=== PATIENT | female | born 1945 | race Caucasian/White ===

== ENCOUNTER 2025-06-19 18:58 | Inpatient (IN) | payer MEDICARE, SELFPAY ==
[2025-06-19] VITALS (17 sets, daily range): BP systolic 119–159; BP diastolic 38–73; PULSE 110–121; RESP 23–30; TEMP 36.7–37.7; O2SAT 74–95; BMI 33.1
--- NOTE | 2025-06-19 19:09 | XRR_ITS ---
PROCEDURE INFORMATION: Exam: XR Chest Exam date and time: 06/19/2025 7:19 PM Age: 79 years old Clinical indication: Shortness of breath; Additional info: Possible sepsis TECHNIQUE: Imaging protocol: Radiologic exam of the chest. Views: 1 view. COMPARISON: No relevant prior studies available. FINDINGS: Lungs: Peripheral reticular opacities are seen in each lung, most prominent at the right apex. Patient is rotated to the left. Pleural spaces: No pleural effusion. No pneumothorax. Heart/Mediastinum: Heart is moderately enlarged. Vasculature: Calcified aorta without dilation. Bones/joints: Subjective bony demineralization. Advanced right shoulder arthropathy. XR/XR chest 1V portable [id number] IMPRESSION: 1. Moderate cardiac enlargement. No definite features of heart failure otherwise. 2. Subpleural reticular opacities at each lung apex may reflect chronic scarring. 3. Subjective bony demineralization could be quantified with DEXA.
--- NOTE | 2025-06-19 19:11 | CTR_ITS ---
PROCEDURE INFORMATION: Exam: CT Chest With Contrast; Diagnostic Exam date and time: 06/19/2025 8:35 PM Age: 79 years old Clinical indication: Other: Sepsis; Shortness of breath TECHNIQUE: Imaging protocol: Diagnostic computed tomography of the chest with contrast. Radiation optimization: All CT scans at this facility use at least one of these dose optimization techniques: automated exposure control; mA and/or kV adjustment per patient size (includes targeted exams where dose is matched to clinical indication); or iterative reconstruction. Contrast material: OMNI 350; Contrast volume: 100 ml; Contrast route: INTRAVENOUS (IV); COMPARISON: CR (CHEST, ) 06/19/2025 7:19 PM RADIATION DOSE METRICS: Total DLP (mGy-cm): 2203.76 FINDINGS: Lungs: There is mild volume loss in the left lower lobe. No acute airspace disease. Pleural spaces: No pneumothorax. No pleural effusion. Heart: Heart size is normal. Coronary arteries: Mild coronary artery calcification. Lymph nodes: Calcified hilar and mediastinal lymph nodes. Vasculature: There is advanced calcific plaque throughout the ectatic thoracic aorta. Ascending segment is normal in caliber, but the descending segment measures up to 3.8 cm transverse dimension in the descending segment. Typical aortic branching pattern with patent branch vessels. Normal caliber pulmonary artery tree without visible filling defect. Scattered calcified granulomata are noted. Bones/joints: No acute fracture or destructive lesion. Soft tissues: Asymmetric tissue noted in the lateral aspect of the left breast. PROCEDURE INFORMATION: Exam: CT Abdomen And Pelvis With Contrast Exam date and time: 06/19/2025 8:35 PM Age: 79 years old Clinical indication: Other: Sepsis; Shortness of breath TECHNIQUE: Imaging protocol: Computed tomography of the abdomen and pelvis with contrast. Radiation optimization: All CT scans at this facility use at least one of these dose optimization techniques: automated exposure control; mA and/or kV adjustment per patient size (includes targeted exams where dose is matched to clinical indication); or iterative reconstruction. Contrast material: OMNI 350; Contrast volume: 100 ml; Contrast route: INTRAVENOUS (IV); COMPARISON: CR (CHEST, ) 06/19/2025 7:19 PM RADIATION DOSE METRICS: Total DLP (mGy-cm): 2203.76 FINDINGS: Liver: Mild fatty infiltration of the liver. Liver measures 21.8 cm in length. Gallbladder and biliary ducts: The postprandial gallbladder is tightly contracted around small stones. No biliary tree dilation. Pancreas: No pancreatic edema or visible mass. Spleen: Spleen measures 10.5 cm in length. Adrenal glands: Normal configuration. Kidneys and ureters: Kidneys enhance symmetrically and demonstrate no evidence of mass, calculus, obstruction, or inflammation. Stomach and bowel: Postprandial stomach. Normal caliber small bowel. Distal colonic diverticulosis without evidence of acute diverticulitis. No bowel wall pneumatosis. Appendix: Normal appendix is confirmed in a retrocecal position. Intraperitoneal space: No free air. No significant fluid collection. Vasculature: There is potential for stenosis at the origins of the celiac and SMA. CESARIO appears patent. There is high-grade stenosis of the proximal right common iliac artery. Patent portal vein and tributaries. No portal venous gas. Lymph nodes: Largest single node in the left inguinal region measures 1.7 cm short axis diameter. Non pathologically enlarged left external iliac distribution lymph nodes are noted. No adenopathy in more proximal gus stations. Urinary bladder: Unremarkable as visualized. Reproductive: Atrophic uterus as expected. No adnexal masses. Bones/joints: There is fatty atrophy of skeletal muscle, most significantly affecting the paraspinous muscles. Mild spinal degenerative change with patent spinal canal and neural foramina. Minimal sacroiliac osteoarthritis. Moderate to advanced bilateral hip osteoarthritis. Soft tissues: There is considerable inflammation in the left inguinal region with several enlarged and enhancing lymph nodes. No perineal/perianal abscess or inflammation. No soft tissue gas or radiopaque foreign body. No visible skin breakdown. CT/CT chest abdpel w/*[id number] IMPRESSION: 1. No acute abnormality in the chest to explain patient's sepsis. 2. Advanced arterial disease. 3. Despite appearance on plain film, the heart size is normal. There is chronic appearing volume loss in the left lower lobe resulting in displacement of the heart to the left. 4. There is asymmetric tissue in the lateral aspect of the left breast. This may be a physiologic asymmetry, but correlation with mammography is recommended. IMPRESSION: 1. There is inflammatory change in the left inguinal region and proximal thigh with enlarged enhancing lymph nodes suggesting cellulitis or other inflammatory/infectious process in the left lower extremity. 2. No acute intra-abdominal abnormality. No evidence of bowel obstruction or urolithiasis. 3. Advanced arterial disease noted with potential for hemodynamically significant stenoses of the celiac and SMA as well as the right common iliac artery. No current findings of bowel ischemia or infarction. 4. Advanced diverticulosis without evidence of acute diverticulitis. 5. Cholelithiasis without evidence of acute cholecystitis.
--- NOTE | 2025-06-19 19:11 | XRR_ITS ---
PROCEDURE INFORMATION: Exam: XR Left Tibia and Fibula Exam date and time: 06/19/2025 7:14 PM Age: 79 years old Clinical indication: Edema; No, it is generalized; Additional info: Concern for subq gas TECHNIQUE: Imaging protocol: Radiologic exam of the left tibia and fibula. Views: 2 views. COMPARISON: No relevant prior studies available. FINDINGS: Bones/joints: No evidence of acute fracture or dislocation. No erosive disease. No significant degenerative change. Soft tissues: Severe diffuse subcutaneous edema with extensive cutaneous thickening. No soft tissue gas or radiopaque foreign body. XR/XR tibia fibula LT 2V [id number] IMPRESSION: Severe subcutaneous edema and cutaneous thickening. No soft tissue gas or radiopaque foreign body. Bony structures appear normal.
--- NOTE | 2025-06-19 19:11 | CTR_ITS ---
PROCEDURE INFORMATION: Exam: CT Head Without Contrast Exam date and time: 06/19/2025 8:29 PM Age: 79 years old Clinical indication: Altered mental status/memory loss; Additional info: AMS TECHNIQUE: Imaging protocol: Computed tomography of the head without contrast. Radiation optimization: All CT scans at this facility use at least one of these dose optimization techniques: automated exposure control; mA and/or kV adjustment per patient size (includes targeted exams where dose is matched to clinical indication); or iterative reconstruction. COMPARISON: No relevant prior studies available. RADIATION DOSE METRICS: Total DLP (mGy-cm): 1674.1 FINDINGS: Brain: Age-related brain parenchymal atrophy. Areas of hypoattenuation in the periventricular and subcortical deep white matter likely on the basis of chronic microvascular ischemic changes. No acute intra cranial hemorrhage. No mass effect or midline shift. No definitive CT evidence of acute territorial infarction. Cerebral ventricles: Prominence of the lateral ventricular system likely on the basis of parenchymal volume loss. Paranasal sinuses: Visualized sinuses are unremarkable. No fluid levels. Mastoid air cells: Visualized mastoid air cells are well aerated. Bones: Intact calvarium. Soft tissues: Unremarkable. CT/CT head wo con* [id number] IMPRESSION: No acute intracranial abnormality. Senescent changes.
--- NOTE | 2025-06-19 19:15 | ECG_ITS ---
[employer] Test Date: 2025-06-19 Pat Name: Brielle Gaytan Department: Room: Gender: Female Barrel Cutter: : 1945 Requested By: Clint Blue Order Number: [id number] Moi MD: Deonna Dumas M.D. Measurements Intervals Vernalis Rate: 118 P: 75 WV: 181 QRS: -71 QRSD: 91 T: 68 QT: 314 QTc: 440 Interpretive Statements SINUS TACHYCARDIA LEFT ANTERIOR FASCICULAR BLOCK [QRS AXIS <= -45, QR IN I, RS IN II] WARNING: DATA QUALITY MAY AFFECT INTERPRETATION No previous ECG available for comparison Electronically Signed On 06-19-2025 23:05:46 CDT by Deonna Dumas M.D. [email or web address]
--- OUTSIDE RECORDS SUMMARY | 2025-06-19 19:20 | XMS_ITS | Encounter Summary ---
Author Organization [facility] Address [address] [place] [address] Care Team Providers Care Packing Machine Operator Name Role Phone Austyn Obregon MD Primary Care Provider [phone] [phone] Encounter Details Date Type Department Care Team (Latest Contact Info) Description 06/14/[address] [facility] Family Medicine- [place] [facility] [address] [place] [phone] Dimitri Romero DO NO ADDRESS ON FILE Urinary tract infection, site not specified (Primary Dx); Pain in joint, site unspecified Social History Tobacco Use Types Packs/Day Years Used Date Smoking Tobacco: Never Assessed Comments Unknown Sex and Gender Information Value Date Recorded Sex Assigned at Not on file Legal Sex Female 5:49 AM LPN PER DIEM Gender Identity Not on file Sexual Orientation Not on file documented as of this encounter Plan of Treatment Not on file documented as of this encounter Visit Diagnoses Diagnosis Urinary tract infection, site not specified- Primary Pain in joint, site unspecified documented in this encounter Care Teams Packing Machine Operator Relationship Specialty Start Date End Date Austyn Obregon MD [address] [facility] [address] [place] [address] PCP - General Family Practice 03/23/19 documented as of this encounter
--- OUTSIDE RECORDS SUMMARY | 2025-06-19 19:20 | XMS_ITS | Encounter Summary ---
Author Organization [facility] Address [address] [place] [address] Care Team Providers Care Per Diem Nurse Name Role Phone Austyn Obregon MD Primary Care Provider [phone] [phone] Encounter Details Date Type Department Care Team (Late st Contact Info) Description 05/16/1999 Outpatient Historical [facility] Family Medicine- [place] y [address] [place] [address] Social History Tobacco Use Types Packs/Day Years Used Date Smoking Tobacco: Never Assessed Comments Unknown Sex and Gender Information Value Date Recorded Sex Assigned at Not on file 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
--- OUTSIDE RECORDS SUMMARY | 2025-06-19 19:20 | XMS_ITS | Encounter Summary ---
Author Organization [facility] Address [address] [place] [address] Care Team Providers Care Cheesemaker Helper Name Role Phone Austyn Obregon MD Primary Care Provider +1 [phone] Encounter Details Date Type Department Care Team (Latest Contact Info) Description 09/24/2003 Outpatient Historical [facility] Family Medicine- [place] [facility] [address] [place] [phone] Erica Barrow MD NO ADDRESS ON FILE MYALGIA AND MYOSITIS NOS (Primary Dx) Social History Tobacco Use Types Packs/Day Years Used Date Smoking Tobacco: Never Assessed Comments Unknown Sex and Gender Information Value Date Recorded Sex Assigned at Not on file 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
--- OUTSIDE RECORDS SUMMARY | 2025-06-19 19:20 | XMS_ITS | Encounter Summary ---
Author Organization [facility] Address [address] [place] [address] Care Team Providers Care Field Laborer Name Role Phone Austyn Obregon MD Primary Care Provider [phone] [phone] Encounter Details Date Type Department Care Team (Latest Contact Info) Description 09/15/1999 Outpatient Historical [facility] Family Medicine- [place] y [address] [place] [phone] Ellie Smith NO ADDRESS ON FILE Pure hypercholesterolem (Primary Dx); Sprain of neck; Nonallopathic lesion of cervical region, not elsewhere classified; Nonallopathic lesion of thoracic region, not elsewhere classified Social History Tobacco Use Types Packs/Day Years Used Date Smoking Tobacco: Never Assessed Comments Unknown Sex and Gender Information Value Date Recorded Sex Assigned at Not on file Legal 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 Gender Identity Not on file Sexual Orientation Not on file documented as of this encounter Plan of Treatment Not on file documented as of this encounter Visit Diagnoses Diagnosis Pure hypercholesterolem- Primary Pure hypercholesterolemia Sprain of neck Neck sprain and strain Nonallopathic lesion of cervical region, not elsewhere classified Nonallopathic lesion of thoracic region, not elsewhere classified documented in this encounter Care Teams Field Laborer Relationship Specialty Start Date End Date Austyn Obregon MD [address] [phone] PCP - General Family Practice 03/23/19 documented as of this encounter
--- OUTSIDE RECORDS SUMMARY | 2025-06-19 19:20 | XMS_ITS | Clinical Summary ---
Author Organization [facility] Address [address] [facility] [address] [place] [address] Care Team Providers Care Farm Contractor Name Role Phone Austyn Obregon MD Primary Care Provider [phone] [phone] Allergies Active Allergy Reactions Criticality Noted Date Comments Aspirin Nausea and Vomiting,Abdominal Pain Low 0 03/23/2019 Medications diphenhydrAMINE (BENADRYL) 25 mg tablet Take 25 mg by mouth every 6 hours as needed for Allergies. Active aspirin (ECOTRIN EC) 81 mg Tablet, Delayed Release (E.C.)Indicatio ns:PVD (peripheral vascular disease),Renal artery stenosis Take 1 Tablet (81 mg) by mouth daily. 01/06/2021 Active HYDROcodone-leslie taminophen (NORCO) 5-325 mg tabletIndicatio ns:PVD (peripheral vascular disease),Chroni c pain of left knee Take 1 Tablet by mouth every 8 hours as needed for Pain, Moderate. Max Daily Amount: 3 Tablets 21 Tablet 05/01/2021 Active atorvastatin (LIPITOR) 20 mg tabletIndicatio ns:PVD (peripheral vascular disease),Renal artery stenosis Take 1 Tablet (20 mg) by mouth daily. 90 Tablet 4 05/01/2021 Active Active Problems Problem Noted Date Diagnosed Date Renal artery stenosis 12/30/2020 PVD (peripheral vascular disease) 12/14/2020 Tobacco use 12/02/2020 Stage 3a chronic kidney disease 12/02/2020 Polycythemia secondary to smoking 12/02/2020 Mixed incontinence 12/02/2020 Grade I diastolic dysfunction 08/31/2019 Overview (08/31/2019): Ejection fraction of 60%-65% on echocardiogram Immunizations Immunization Administration Dates Next Due (SPIKEVAX) (12 YRS UP PRIMAR Y SERIES) COVID-19 VACCINE - MRNA-1273(PF) 100 MCG/0.5 ML IM SUSP 03/06/2021 (TDVAX)(7 YRS UP) TETANUS AN D DIPHTHERIA TOXOIDS, ADSORBED (2 LF OF TETANUS TOXOID AND 2 LF OF DIPHTHERIA TOXOID), 0.5ML (PF), IM 02/24/1999 Social History Tobacco Use Types Packs/Day Years Used Date Smoking Tobacco: Every Day Cigarettes 1 60 Smokeless Tobacco: Never Tobacco Cessation:Ready to Q uit: No; Counseling Given: Yes Alcohol Use Standard Drinks/Week Comments Not Currently 0 (1 standard drink = 0.6 oz pur e alcohol) Comments No Sex and Gender Information Value Date Recorded Sex Assigned at Not on file Legal Sex Female 5:49 AM REGULATORY INTERNSHIP Gender Identity Not on file Sexual Orientation Not on file Last Filed Vital Signs Vital Sign Reading Time Taken Comments Blood Pressure 124/70 05/01/2021 3:12 PM CDT Pulse 93 05/01/2021 3:12 PM CDT Temperature 36.8 C (98.3 F) 05/01/2021 3:12 PM CDT Respiratory Rate 16 05/01/2021 3:12 PM CDT Oxygen Saturation 93% 05/01/2021 3:12 PM CDT Inhaled Oxygen Concentration - - Weight 96.2 kg (212 lb) 12/02/2020 2:49 PM REGULATORY INTERNSHIP Height 175.3 cm (5' 9 ) 05/01/2021 3:12 PM CDT Body Mass Index 31.31 12/02/2020 2:49 PM REGULATORY INTERNSHIP Plan of Treatment Health Maintenance Due Date Last Done Comments PNEUMOCOCCAL VACCINE 50+ YEA RS (1 of 2 - PCV) 1964 Traditional Medicare (ACO) A nnual Wellness Visit 1964 ZOSTER VACCINE (1 of 2) 1994 DTAP/TDAP/TD VACCINES (1 - Tdap) 02/25/1999 02/24/19 99 OSTEOPOROSIS SCREENING 2009 RSV VACCINE (60+ or ) (1 - 1-dose 75+ series) 2019 COVID-19 Vaccine (2 - season) 2024 INFLUENZA VACCINE (#1) 2025 10/04/2020, 2019 Colorectal Cancer Screening Discontinued FIT/FOBT Q 1 year Discontinued 03/22/2000, 03/14/1999 COLORECTAL SCREENING Discontinued FIT-DNA Q 3 years Discontinued Flex Sig/CT Colonography Q 5 years Discontinued Insurance MEDICARE PART A AND B Care Teams Farm Contractor Relationship Specialty Start Date End Date Austyn Obregon MD [address] [phone] PCP - General Family Practice 03/23/19
--- OUTSIDE RECORDS SUMMARY | 2025-06-19 19:20 | XMS_ITS | Encounter Summary ---
Author Organization [facility] Address [address] [place] [address] Care Team Providers Care Condenser Operator Name Role Phone Austyn Obregon MD Primary Care Provider +1 [phone] Encounter Details Date Type Department Care Team (Latest Contact Info) Description 05/10/2000 Outpatient Historical [facility] Family Medicine- [place] [facility] [address] [place] [phone] Ellie Smith NO ADDRESS ON FILE Pure hypercholesterolem (Primary Dx); Diffus cystic mastopathy Social History Tobacco Use Types Packs/Day Years Used Date Smoking Tobacco: Never Assessed Comments Unknown Sex and Gender Information Value Date Recorded Sex Assigned at Not on file 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
--- OUTSIDE RECORDS SUMMARY | 2025-06-19 19:20 | XMS_ITS | Encounter Summary ---
Author Organization [facility] Address [address] [place] [address] Care Team Providers Care Carving Machine Operator Name Role Phone Austyn Obregon MD Primary Care Provider +1 [phone] Encounter Details Date Type Department Care Team (Latest Contact Info) Description 06/20/2002 Outpatient Historical [facility] Family Medicine- [place] [facility] [address] [place] [phone] Dimitri Romero, DO NO ADDRESS ON FILE DERMATITIS NOS (Primary Dx) Social History Tobacco Use Types Packs/Day Years Used Date Smoking Tobacco: Never Assessed Comments Unknown Sex and Gender Information Value Date Recorded Sex Assigned at Not on file Legal Sex Female 5:49 AM 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
--- OUTSIDE RECORDS SUMMARY | 2025-06-19 19:20 | XMS_ITS | Encounter Summary ---
Author Organization [facility] Address [address] [place] [address] Care Team Providers Care Time Stamp Assembler Name Role Phone Austyn Obregon MD Primary Care Provider +1 [phone] Encounter Details Date Type Department Care Team (Latest Contact Info) Description 11/20/2003 Outpatient Historical [facility] Rheumatology- [facility] [address] [place] [address] Mikey Parsons MD NO ADDRESS ON FILE RHEUMATISM NOS (Primary Dx); IMMUNOLOGICAL FIND OTHR OR UNSPEC Social History Tobacco Use Types Packs/Day Years Used Date Smoking Tobacco: Never Assessed Comments Unknown Sex and Gender Information Value Date Recorded Sex Assigned at Not on file Legal Sex Female 5: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
--- OUTSIDE RECORDS SUMMARY | 2025-06-19 19:20 | XMS_ITS | Clinical Summary ---
Author Organization [facility] Address [address] [facility] [address] [place] [address] Care Team Providers Care Lubricating Machine Tender Name Role Phone Unavailable Primary Care Provider Unavailabl e Allergies Active Allergy Reactions Criticality Noted Date Comments Aspirin Nausea and Vomiting,Abdominal Pain Low 0 03/23/2019 Medications aspirin (ECOTRIN EC) 81 mg Tablet, Delayed Release (E.C.)Indication s:PVD (peripheral vascular disease),Renal artery stenosis Take 1 Tablet (81 mg) by mouth daily. 1 Active diphenhydrAMINE (BENADRYL) 25 mg tablet Take 25 mg by mouth every 6 hours as needed for Allergies. 0 Active Miscellaneous Medical SupplyIndication s:Type 2 diabetes mellitus with hyperglycemia, without long-term current use of insulin ([facility]) Dx: Type 2 Diabetes Mellitus E11.65 Rx: Glucometer, strips, lancents. QS x 3 months Sig: Monitor fasting blood sugar daily 1 Each 11 2 Active Diabetic Supplies, Miscellan. Kit Check sugars daily Dx E11.65 type 2. Test strips # 90 with 4 refills, Lancets # 90 with 4 refills 1 Kit 2 Active Blood-Glucose Meter Kit Check blood sugar daily E11.65 1 Each 2 Active lancets 30 gauge 1 Each by Mis.(Non-Shane g; Combo Route) route daily. 100 Each 11 2 Active metFORMIN (GLUCOPHAGE) 500 mg tabletIndication s:Type 2 diabetes mellitus with hyperglycemia, without long-term current use of insulin (CMS/HCC) Take 1 Tablet (500 mg) by mouth 2 times daily with meals. 180 Tablet 4 2 Active atorvastatin (LIPITOR) 20 mg tabletIndication s:PVD (peripheral vascular disease),Renal artery stenosis TAKE 1 TABLET(20 MG) BY MOUTH DAILY 90 Tablet 4 2 Active triamcinolone acetonide (KENALOG) 0.5 % CreamIndications :Cellulitis of lower extremity, unspecified laterality Apply to affected area 2 times daily. 15 Gram 3 Active blood sugar diagnostic (Venaxisuch Ultra Test) Strip USE DIRECTED TO CHECK BLOOD SUGAR DAILY 100 Strip 3 Active hydrOXYzine HCL (ATARAX) 10 mg tablet TAKE 1 TABLET(10 MG) BY MOUTH THREE TIMES DAILY NEEDED FOR ITCHING 90 Tablet 1 4 Active Active Problems Problem Noted Date Diagnosed Date Type 2 diabetes mellitus wit h hyperglycemia, without long-term current use of insulin 02/11/2022 Chronic pain of both lower extremities 2 Dependence on other enabling machines and device s 02/10/2022 Renal artery stenosis 12/30/2020 PVD (peripheral vascular disease) 12/14/2020 Tobacco use 12/02/2020 Stage 3a chronic kidney disease 12/02/2020 Polycythemia secondary to smoking 12/02/2020 Mixed incontinence 12/02/2020 Grade I diastolic dysfunction 08/31/2019 Overview (03/13/2021): Ejection fraction of 60%-65% on echocardiogram Encounters Date Type Department Care Team Description 05/30/2025 External Device Data [facility] ABSTRACTION Provider, Abstract 05/29/2025 External Device Data [facility] ABSTRACTION Provider, Abstract 05/02/2025 External Device Data [facility] ABSTRACTION Provider, Abstract 05/01/2025 External Device Data [facility] ABSTRACTION Provider, Abstract from Last 3 Months Immunizations Immunization Administration Dates Next Due (SPIKEVAX) (12 YRS UP PRIMAR Y SERIES) COVID-19 VACCINE - MRNA-1273(PF) 100 MCG/0.5 ML IM SUSP 03/06/2021 (TDVAX)(7 YRS UP) TETANUS AN D DIPHTHERIA TOXOIDS, ADSORBED (2 LF OF TETANUS TOXOID AND 2 LF OF DIPHTHERIA TOXOID), 0.5ML (PF), IM 02/24/1999 Social History Tobacco Use Types Packs/Day Years Used Date Smoking Tobacco: Every Day Cigarettes Smokeless Tobacco: Never Tobacco Cessation:Ready to Q uit: Not Asked; Counseling Given: Not Answered Alcohol Use Standard Drinks/Week Comments Not Currently 0 (1 standard drink = 0.6 oz pur e alcohol) Comments No Sex and Gender Information Value Date Recorded Sex Assigned at Not on file 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 Gender Identity Not on file Sexual Orientation Not on file Last Filed Vital Signs Vital Sign Reading Time Taken Comments Blood Pressure 138/60 06/17/2023 11:57 AM CDT Pulse 66 06/17/2023 11:31 AM CDT Temperature 36.6 C (97.8 F) 06/17/2023 11:31 AM CDT Respiratory Rate 17 06/17/2023 11:31 AM CDT Oxygen Saturation 97% 06/17/2023 11:31 AM CDT Inhaled Oxygen Concentration - - Weight 98.5 kg (217 lb 3.2 oz) 06/17/2023 11:31 AM CDT Height 171.5 cm (5' 7.5 ) 06/17/2023 11:31 AM CD T Body Mass Index 33.52 06/17/2023 11:31 AM CDT Plan of Treatment Health Maintenance Due Date Last Done Comments DIABETES ANNUAL FOOT EXAM 1962 DIABETES MICROALBUMIN ANNUAL SCREEN 1962 PNEUMOCOCCAL VACCINE 50+ YEA RS (1 of 2 - PCV) 1963 ZOSTER VACCINE (1 of 2) 1994 DTAP/TDAP/TD VACCINES (1 - Tdap) 02/25/1999 02/24/19 99 OSTEOPOROSIS SCREENING 2009 DIABETES ANNUAL RETINAL EXAM 02/22/2016 02/21/2015 RSV VACCINE (60+ or ) (1 - 1-dose 75+ series) 2019 DIABETES HBA1C Q 6 MONTHS 12/18/2023 06/17/2023, LDL CHOLESTEROL ANNUAL 06/17/2024 06/17/2023 COVID-19 Vaccine (2 - season) 2024 04/ INFLUENZA VACCINE (#1) 2025 2, 10/04/2020, 10/04/2020 Procedures Procedure Name Priority Date/Time Associated Diagnosis Comments LIPID PANEL Routine 06/17/2023 11:50 AM CDT PVD (peripheral vascular disease) Type 2 diabetes mellitus with hyperglycemia, without long-term current use of insulin ([facility]) HEMOGLOBIN A1C Routine 06/17/2023 11:50 AM CDT Type 2 diabetes mellitus with hyperglycemia, without long-term current use of insulin ([facility]) from Last 3 Months or Most Recently Relevant to Health Maintenance Results * HEMOGLOBIN A1C (06/17/2023 11:50 AM CDT) HEMOGLOBIN A1C 5.5 <5.7 % of total Hgb [facility] Comment: For the purpose of screening for the presence of diabetes: <5.7% Consistent with the absence of diabetes 5.7-6.4% Consistent with increased risk for diabetes (prediabetes) > or =6.5% Consistent with diabetes This assay result is consistent with a decreased risk of diabetes. Currently, no consensus exists regarding use of hemoglobin A1c for diagnosis of diabetes in children. According to [place] Diabetes Association (ADA) guidelines, hemoglobin A1c <7.0% represents optimal control in non- diabetic patients. Different metrics may apply to specific patient populations. Standards of Medical Care in Diabetes(ADA). ESTIMATED AVERAGE GLUCOSE (MG/DL) 111 mg/dL [facility] ESTIMATED AVERAGE GLUCOSE (MMOL/L) 6.2 mmol/L [facility] Comment: Test Performed at: [facility] [address] [address] Jelani Adams MD Blood 06/17/2023 11:5 0 AM CDT 06/18/2023 3:29 AM CDT Ana Theodore DIE CLEANER CHEMISTRY ORDERABLES Fin al Result [facility] [phone] [facility] [id number] [address] * (ABNORMAL) LIPID PANEL (06/17/2023 11:50 AM CDT) CHOLESTEROL 186 <200 mg/dL [facility] HDL 35(L) > OR = 50 mg/dL [facility] TRIGLYCERIDE 126 <150 mg/dL [facility] LDL CALCULATED 127(H) mg/dL (calc) [facility] Comment: Reference range: <100 Desirable range <100 mg/dL for primary prevention; <70 mg/dL for patients with CHD or diabetic patients with > or = 2 CHD risk factors. LDL-C is now calculated using the Lior-Tammy calculation, which is a validated novel method providing better accuracy than the Friedewald equation in the estimation of LDL-C. Lior ALDANA et al. APOLINAR. 2013;310(19): 2954-0259 (http://education.gridComm/faq/LHB377) CHOL/HDL RATIO 5.3(H) <5.0 (calc) [facility] TOTAL NON-HDL CHOL(LDL+VLDL) 151(H) <130 mg/dL (calc) [facility] Comment: For patients with diabetes plus 1 major ASCVD risk factor, treating to a non-HDL-C goal of <100 mg/dL (LDL-C of <70 mg/dL) is considered a therapeutic option. Test Performed at: [facility] [address] [place] [address] [place] [address] Jelani Adams MD Blood 06/17/2023 11:5 0 AM CDT 06/18/2023 3:29 AM CDT us Ana LUISP CHEMISTRY ORDERABLES Fin al Result [facility] [phone] [facility] [address] [place] [address] from Last 3 Months or Most Recently Relevant to Health Maintenance Insurance MEDICARE PART A AND B
--- OUTSIDE RECORDS SUMMARY | 2025-06-19 19:20 | XMS_ITS | Encounter Summary ---
Author Organization [facility] Address [address] [place] [address] Care Team Providers Care Restaurant Worker Name Role Phone Austyn Obregon MD Primary Care Provider [phone] Encounter Details Date Type Department Care Team (Latest Contact Info) Description 06/15/2000 Outpatient Historical [facility] [address] [facility] [address] [place] [address] Pat Lux MD NO ADDRESS ON FILE Nonspecific abnormal findings on radiological or other examinations of the breast (Primary Dx) Social History Tobacco Use Types Packs/Day Years Used Date Smoking Tobacco: Never Assessed Comments Unknown Sex and Gender Information Value Date Recorded Sex Assigned at Not on file 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
--- OUTSIDE RECORDS SUMMARY | 2025-06-19 19:20 | XMS_ITS | Encounter Summary ---
Author Organization [facility] Address [address] [place] [address] Care Team Providers Care Threshing Operator Name Role Phone Austyn Obregon MD Primary Care Provider [phone] Encounter Details Date Type Department Care Team (Latest Contact Info) Description 06/27/1999 Outpatient Historical [facility] [place] [facility] [address] [place] [phone] Ellie Smith NO ADDRESS ON FILE Hordeolum externum (Primary Dx) Social History Tobacco Use Types Packs/Day Years Used Date Smoking Tobacco: Never Assessed Comments Unknown Sex and Gender Information Value Date Recorded Sex Assigned at Not on file 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
--- OUTSIDE RECORDS SUMMARY | 2025-06-19 19:20 | XMS_ITS | Encounter Summary ---
Author Organization [facility] Address [address] [place] [address] Care Team Providers Care Oil Well Services Supervisor Name Role Phone Austyn Obregon MD Primary Care Provider [phone] Encounter Details Date Type Department Care Team (Latest Contact Info) Description 03/14/1999 Outpatient Historical [facility]- [address] [place] [phone] Ellie Simth NO ADDRESS ON FILE Unspecified menopausal and postmenopausal disorder (Primary Dx); Insomnia, unspecified Social History Tobacco Use Types Packs/Day Years Used Date Smoking Tobacco: Never Assessed Comments Unknown Sex and Gender Information Value Date Recorded Sex Assigned at Not on file 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
--- OUTSIDE RECORDS SUMMARY | 2025-06-19 19:20 | XMS_ITS | Encounter Summary ---
Author Organization [facility] Address [address] [place] [address] Care Team Providers Care Wood Router Name Role Phone Austyn Obregon MD Primary Care Provider [phone] [phone] Encounter Details Date Type Department Care Team (Latest Contact Info) Description 05/27/2001 Outpatient Historical [facility] [place] [address] [place] [phone] Dejan Manning MD [address] [facility] [address] [place] [phone] Spasm of muscle (Primary Dx); Abnormal weight gain Social History Tobacco Use Types Packs/Day Years Used Date Smoking Tobacco: Never Assessed Comments Unknown Sex and Gender Information Value Date Recorded Sex Assigned at Not on file 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
--- OUTSIDE RECORDS SUMMARY | 2025-06-19 19:20 | XMS_ITS | Encounter Summary ---
Author Organization [facility] Address [address] [place] [address] Care Team Providers Care Construction Equipment Technician Name Role Phone Austyn Obregon MD Primary Care Provider [phone] Encounter Details Date Type Department Care Team (Latest Contact Info) Description 02/24/1999 Outpatient Historical [facility]- [address] [place] [phone] Ellie Smith NO ADDRESS ON FILE Alopecia, unspecified (Primary Dx); Abnormal weight gain Social History Tobacco Use Types Packs/Day Years Used Date Smoking Tobacco: Never Assessed Comments Unknown Sex and Gender Information Value Date Recorded Sex Assigned at Not on file 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
--- OUTSIDE RECORDS SUMMARY | 2025-06-19 19:20 | XMS_ITS | Encounter Summary ---
Author Organization [facility] Address [address] [place] [address] Care Team Providers Care Director Of Neighborhood Service Center Name Role Phone Austyn Obregon MD Primary Care Provider [phone] Encounter Details Date Type Department Care Team (Latest Contact Info) Description 03/22/2000 Outpatient Historical [facility] Family Medicine- [address] [place] [phone] Ellie Smith NO ADDRESS ON FILE Pure hypercholesterolem (Primary Dx); Unspecified menopausal and postmenopausal disorder Social History Tobacco Use Types Packs/Day Years Used Date Smoking Tobacco: Never Assessed Comments Unknown Sex and Gender Information Value Date Recorded Sex Assigned at Not on file 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
--- NOTE | 2025-06-19 19:28 | W.ED.SOB ---
HPI - SOB/Dyspnea General: Chief Complaint: Shortness of Breath/Dyspnea Stated Complaint: SOB Time Seen by Provider: 06/19/25 19:08 History of Present Illness: HPI Narrative: Patient is brought in by EMS with concerns for altered mental status. Per EMS the patient's neighbor called and when they arrived she was found on the ground unable to stand. The patient is awake. She appears confused but does answer some questions appropriately including who she is and where she is. She does not know the year and her responses are somewhat delayed. She does not answer questions about her medical history. Upon arrival here the patient is tachypneic and tachycardic. Her temperature was 99.8. She has chronic venous stasis changes of bilateral lower extremities with erythema and swelling that is hot to touch from her right toes extending to her right hip. She has multiple early pressure wounds of her left buttock, sacrum, and left upper posterior thigh. Her lungs are clear to auscultation. I am concerned for sepsis. Will check labs, blood cultures, lactic acid, she already received 800 mg of IV fluid in the ambulance which will suffice at this time given concern for possible fluid overload risk, start broad-spectrum antibiotics, CT, x-ray, and reassess. Related Data Home Medications ?Medication ?Instructions ?Recorded ?Confirmed aspirin 325 mg tablet (Lite Coat 325 mg PO DAILY 01/08/21 01/08/21 Aspirin) Allergies Allergy/AdvReac Type Severity Reaction Status Date / Time No Known Allergies Allergy Unverified 01/08/21 08:54 Review of Systems General: Reports: ROS unobtainable due to mental status [facility] ED PFSH: Medical History (Updated 06/19/25 @ 21:18 by Clint Blue MD) HTN (hypertension) Venous stasis dermatitis Social History Smoking and tobacco/nicotine status: current every day tobacco/nicotine user cigarettes Packs smoked per day: 1 Years cigarettes smoked: 63 Physical Exam Const: OTHER: Patient is awake but appears confused Neck/C-Spine: COMMON NORMALS: full ROM and supple Resp: COMMON NORMALS: No retractions and No use of accessory muscles Cardio: COMMON NORMALS: regular rhythm RHYTHM: regular rhythm OTHER: Tachycardia GI: OTHER: Abdomen is soft, nontender Extremity: OTHER: Chronic venous stasis changes bilateral lower extremities, erythema with swelling and hot to touch from left toes to her left buttock Skin: OTHER: Early pressure wound to the sacrum, left buttock, left posterior upper thigh Course Vital Signs: Vital signs: Vital Signs Temperature 99.8 F H 06/19/25 19:12 Pulse Rate 121 H 06/19/25 21:30 Respiratory Rate 29 H 06/19/25 19:12 Blood Pressure 129/73 06/19/25 21:30 Pulse Oximetry 92 06/19/25 21:30 Oxygen Delivery Me thod Nasal Cannula 06/19/25 21:30 Oxygen Flow Rate 5 06/19/25 21:30 MDM - SOB/Dyspnea Medical Decision Making On reassessment patient's white blood cell count came back at 36. Her lactic acid is 6. Will give her another 500 cc of IV fluids. I am still concerned for potential fluid overload so we will be careful with the fluids. CT of her chest abdomen pelvis shows evidence of the cellulitis of her left leg with no signs of subcutaneous gas. I discussed the case with the hospitalist and we will continue antibiotics, IV fluids carefully, and admit to the ICU for further workup and treatment of her sepsis. Lab Data 06/19/25 19:27 06/19/25 19:27 Labs/Radiology: Radiology Impressions Chest X-Ray 06/19/25 19:09 IMPRESSION: 1. Moderate cardiac enlargement. No definite features of heart failure otherwise. 2. Subpleural reticular opacities at each lung apex may reflect chronic scarring. 3. Subjective bony demineralization could be quantified with DEXA. Chest/Abdomen/Pelvis CT 06/19/25 19:11 IMPRESSION: 1. No acute abnormality in the chest to explain patient's sepsis. 2. Advanced arterial disease. 3. Despite appearance on plain film, the heart size is normal. There is chronic appearing volume loss in the left lower lobe resulting in displacement of the heart to the left. 4. There is asymmetric tissue in the lateral aspect of the left breast. This may be a physiologic asymmetry, but correlation with mammography is recommended. IMPRESSION: 1. There is inflammatory change in the left inguinal region and proximal thigh with enlarged enhancing lymph nodes suggesting cellulitis or other inflammatory/infectious process in the left lower extremity. 2. No acute intra-abdominal abnormality. No evidence of bowel obstruction or urolithiasis. 3. Advanced arterial disease noted with potential for hemodynamically significant stenoses of the celiac and SMA as well as the right common iliac artery. No current findings of bowel ischemia or infarction. 4. Advanced diverticulosis without evidence of acute diverticulitis. 5. Cholelithiasis without evidence of acute cholecystitis. Tibia/Fibula X-Ray 06/19/25 19:11 IMPRESSION: Severe subcutaneous edema and cutaneous thickening. No soft tissue gas or radiopaque foreign body. Bony structures appear normal. Laboratory Results WBC 36.26 10^3/uL (3.29-11.43) H* 06/19/25 19:27 RBC 5.13 10^6/uL (3.85-5.65) 06/19/25 19:27 Hgb 14.40 g/dL (11.27-16.99) 06/19/25 19:27 Hct 45.0 % (36-47) 06/19/25 19:27 MCV 87.7 fl (85-98) 06/19/25 19:27 MCH 28.1 pg (27-33) 06/19/25 19:27 MCHC 32.0 g/dL (30-55) 06/19/25 19:27 RDW 14.4 % (12.1-15.1) 06/19/25 19:27 Plt Count 339 10^3/cmm (157-399) 06/19/25 19:27 MPV 10.3 fL (7.4-10.4) 06/19/25 19:27 Neut % (Auto) 94.5 % 06/19/25 19:27 Lymph % (Auto) 2.5 % 06/19/25 19:27 Tucker % (Auto) 1.2 % 06/19/25 19:27 Eos % (Auto) 0.0 % 06/19/25 19:27 Baso % (Auto) 0.3 % 06/19/25 19:27 Neut # (Auto) 34.27 10^3/uL (1.8-7.7) H 06/19/25 19:27 Lymph # (Auto) 0.9 10^3/uL (0.8-4.8) 06/19/25 19:27 Tucker # (Auto) 0.4 10^3/uL (0.2-0.9) 06/19/25 19: Eos # (Auto) 0.0 10^3/uL (0.0-0.8) 06/19/25: Baso # (Auto) 0.1 10^3/uL (0.0-0.1) 06/19/25: Nucleated RBC % (auto) 0 % 06/19/25: Nucleated RBCs # 0.0 /100WBC 06/19/25 19: PT 14.70 SECONDS (12.1-14.9) 06/19/25: INR 1.08 (0.8-1.2) 06/19/25: APTT 33.5 SECONDS (23.9-36.7) 06/19/25: Specimen Type Arterial 06/19/25 20:06 Sample Site Radial, right 06/19/25 20:06 ABG pH 7.46 (7.35-7.45) H 06/19/25 20:06 ABG pCO2 28.4 mmHg (35-45) L 06/19/25 20:06 ABG pO2 57.9 mmHg (80.0-100.0) L 06/19/25 20:06 ABG HCO3 20.3 mmol/L (22-26) L 06/19/25 20:06 ABG O2 Saturation 91.8 06/19/25 20:06 ABG Base Excess -2.2 mmol/L (-2.0-2.0) L 06/19/25 20:06 Royal Test Pos 06/19/25 20:06 A-a O2 Gradient 7.3 mmHg (5-10) 06/19/25 20:06 Hematocrit 45.2 % (37-47) 06/19/25 20:06 Hgb O2 Saturation 88.7 % (95-100) L 06/19/25 20:06 Carboxyhemoglobin 2.5 %THgb (0.4-20.1) 06/19/25 20:06 Methemoglobin 0.9 % (0.4-1.5) 06/19/25 20:06 Total Hemoglobin 14.8 g/dL (12-16) 06/19/25 20:06 Sodium 134.0 mmol/L (131-143) 06/19/25 20:06 Potassium 4.5 mmol/L (3.5-5.0) 06/19/25 20:06 Glucose 188.0 mg/dL (70-115) H 06/19/25 20:06 Ionized Calcium 1.1 mmol/L (1.1-1.4) 06/19/25 20:06 O2 Delivery Device Nc 06/19/25 20:06 O2 Liters/Min 3.0 % 06/19/25 20:06 Supervisory Historian ID [email or web address] 06/19/25 20:06 Sodium 135 mmol/L (136-145) L 06/19/25 19:27 Potassium 4.7 mmol/L (3.5-5.1) 06/19/25 19:27 Chloride 99 mmol/L (98-107) 06/19/25 19:27 Carbon Dioxide 19 mmol/L (22-29) L 06/19/25 19:27 Anion Gap 21.7 (5-19) H 06/19/25 19:27 BUN 23 mg/dL (8-23) 06/19/25 19:27 Creatinine 1.4 mg/dL (0.5-0.9) H 06/19/25 19:27 GFR Calculation Not Reportable 06/19/25 19:27 Glucose 169 mg/dL (65-115) H 06/19/25 19:27 Calculated Osmolality 288 mOsm/kg (285-295) 06/19/25 19:27 Lactic Acid 6.0 mmol/L (0.5-2.2) H* 06/19/25 19:27 Calcium 8.6 mg/dL (8.5-10.5) 06/19/25 19:27 Magnesium 2.2 mg/dL (1.7-2.3) 06/19/25 19:27 Total Bilirubin 0.8 mg/dL (0.15-1.2) 06/19/25 19:27 AST 28 U/L (0-32) 06/19/25 19:27 ALT 21 U/L (0-33) 06/19/25 19:27 Alkaline Phosphatase 85 U/L (35-105) 06/19/25 19:27 Ammonia 39 umol/L (11-51) 06/19/25 19:27 Creatine Kinase 810 U/L (26-192) H* 06/19/25 19:27 Troponin T Baseline 19 ng/L (0-10) H 06/19/25 19:27 Total Protein 6.7 g/dL (6.6-8.7) 06/19/25 19:27 Albumin 3.4 g/dL (3.5-5.2) L 06/19/25 19:27 Globulin 3.3 g/dL (1.3-4.6) 06/19/25 19:27 All radiology interpretation(s) finalized by discharge Critical Care Time Critical Care Time: Critical Care Time: Yes Total Critical Care Time: 35 Attestation: This case had a high probability of a clinically significant, sudden, or life threatening deterioration of this patient's condition which required my full and direct attention, intervention and personal management. Discharge Plan Discharge Patient Disposition: Admitted As Inpatient Clinical Impression: Cellulitis, Sepsis Condition: Stable Coding Level of Care Code ED Cook Short Order for Candelaria Ashby
[2025-06-19 19:38] LABS: Hematocrit 45.0 % (36-47); Hemoglobin 14.40 g/dL (11.27-16.99); Mean Corpuscular HGB Conc 32.0 g/dL (30-55); Mean Corpuscular Hemoglobin 28.1 pg (27-33); Mean Corpuscular Volume 87.7 fl (85-98); Nucleated Red Blood Cells % 0 %; Platelet Count 339 10^3/cmm (157-399); Red Blood Count 5.13 10^6/uL (3.85-5.65)
[2025-06-19 20:00] LABS: INR 1.08 (0.8-1.2); Prothrombin Time 14.70 SECONDS (12.1-14.9)
[2025-06-19 20:01] LABS: Partial Thromboplastin Time 33.5 SECONDS (23.9-36.7); White Blood Count 36.26 10^3/uL (3.29-11.43)
[2025-06-19 20:03] LABS: Troponin(5th) Baseline 19 ng/L (0-10)
[2025-06-19 20:04] LABS: Ammonia 39 umol/L (11-51)
[2025-06-19] MEDS: piperacillin-tazobactam 4.5 GM in sodium chloride 0.9% (plus) 50 ML IV (20:04)
[2025-06-19 20:05] LABS: Alanine Aminotransferase 21 U/L (0-33); Albumin Level 3.4 g/dL (3.5-5.2); Alkaline Phosphatase 85 U/L (35-105); Anion Gap 21.7 (5-19); Aspartate Amino Transferase 28 U/L (0-32); Blood Urea Nitrogen 23 mg/dL (8-23); Calcium 8.6 mg/dL (8.5-10.5); Carbon Dioxide 19 mmol/L (22-29); Chloride 99 mmol/L (98-107); Creatinine Clr Calc Pharmacy 40.7144; Globulin 3.3 g/dL (1.3-4.6); Glucose 169 mg/dL (65-115); Magnesium 2.2 mg/dL (1.7-2.3); Osmolality Calculated 288 mOsm/kg (285-295); Potassium 4.7 mmol/L (3.5-5.1); Sodium 135 mmol/L (136-145); Total Protein 6.7 g/dL (6.6-8.7)
[2025-06-19 20:12] LABS: Lactic Sepsis W/Reflex 6.0 mmol/L (0.5-2.2)
[2025-06-19 20:16] LABS: ABG PCO2 28.4 mmHg (35-45); ABG PH Result 7.46 (7.35-7.45); Alveolar-Arterial Oxygen Gradi 7.3 mmHg (5-10); Arterial Blood Gas Hematocrit 45.2 % (37-47); Blood Gas Allen Test Pos; Blood Gas LPM 3.0 %; Blood Gas Sample Site Radial, right; Blood Gas Sample Type Arterial; Carboxyhemoglobin 2.5 %THgb (0.4-20.1); Glucose Level-ABG 188.0 mg/dL (70-115); HCO3 ABG 20.3 mmol/L (22-26); Ionized Calcium Level - ABG 1.1 mmol/L (1.1-1.4); Methemoglobin 0.9 % (0.4-1.5); Oxygen Saturation ABG 91.8; PO2 ABG 57.9 mmHg (80.0-100.0); Potassium Level - ABG 4.5 mmol/L (3.5-5.0); Sodium Level - ABG 134.0 mmol/L (131-143)
[2025-06-19] MEDS: iohexol 350 mg/mL 500 mL Btl (per mL) IV (20:49)
[2025-06-19 21:19] LABS: Reflex Lactate Order REFLEX LACTIC ORDERD
--- NOTE | 2025-06-19 21:28 | ECG_ITS ---
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 Measurements Intervals [place] Rate: 114 P: 47 FL: 194 QRS: -52 QRSD: 89 T: 39 QT: 320 QTc: 441 Interpretive Statements SINUS TACHYCARDIA LEFT ANTERIOR FASCICULAR BLOCK [QRS AXIS <= -45, QR IN I, RS IN II] POSSIBLE ANTERIOR MYOCARDIAL INFARCTION , OF INDETERMINATE AGE [30 ms Q WAVE IN V3/V4, OR R < 0.2 mV IN V4] Compared to ECG 06/19/2025 19:31:00 Myocardial infarct finding now present Electronically Signed On 06-19-2025 23:05:25 CDT by Deonna Dumas M.D. [id number]
--- NOTE | 2025-06-19 21:54 | PHA.VACGOAL ---
Vancomycin Goal - Goal Vancomycin Goal:: 15-20 mg/L Vancomycin Indication:: Other (SEPSIS) - Therapy Current therapy:: Pip/Tazo Day of therpy:: Day []of [] . Actual body weight (kg): 224 lb 9.6 oz - Data Labs: WBC 36.26 10^3/uL (3.29-11.43) H* 06/19/25 19:27 RBC 5.13 10^6/uL (3.85-5.65) 06/19/25 19:27 Hgb 14.40 g/dL (11.27-16.99) 06/19/25 19:27 Hct 45.0 % (36-47) 06/19/25 19:27 MCV 87.7 fl (85-98) 06/19/25 19:27 MCH 28.1 pg (27-33) 06/19/25 19:27 MCHC 32.0 g/dL (30-55) 06/19/25 19:27 RDW 14.4 % (12.1-15.1) 06/19/25 19:27 Sodium 135 mmol/L (136-145) L 06/19/25 19:27 Potassium 4.7 mmol/L (3.5-5.1) 06/19/25 19:27 Chloride 99 mmol/L (98-107) 06/19/25 19:27 Carbon Dioxide 19 mmol/L (22-29) L 06/19/25 19:27 Anion Gap 21.7 (5-19) H 06/19/25 19:27 BUN 23 mg/dL (8-23) 06/19/25 19:27 Creatinine 1.4 mg/dL (0.5-0.9) H 06/19/25 19:27 GFR Calculation Not Reportable 06/19/25 19:27 Last dialysis session:: N/A Treatment plan:: new consult Regimen:: INITIAL LOADING DOSE OF 3000 MG PER DOSING PROTOCOL. MAINTENANCE DOSE OF 750 MG Q12H Follow up:: WILL CONTINUE TO MONITOR AND FOLLOW UP DAILY
[2025-06-19 22:08] LABS: Troponin 5 2HR 19.92 ng/L (0-10); Troponin 5 2HR Delta 0.92 ABS# (0-10)
[2025-06-19 22:12] LABS: Lactic Acid level (Lactate) 4.8 mmol/L (0.5-2.2)
--- NOTE | 2025-06-19 22:22 | USCV_ITS ---
Johnson Brielle Gaytan Age: 79 Gender: F : 1945 Exam Date: 06/19/2025 23:50 Ordering Phys: Armaan Gonsales MD Technologist: NIKKIE [place] [facility] [place]: pain History of venous stasis, chronic bilateral 3+pitting edema of the lower extremities with gaiter zone pigmentation and oozing blisters, HTN, AMS, patient is unresponsive in ICU-3 HISTORY: pain History of venous stasis, chronic bilateral 3+pitting edema of the lower extremities with gaiter zone pigmentation and oozing blisters, HTN, AMS, patient is unresponsive in ICU-3 PROCEDURES: Venous duplex imaging was performed in bilateral lower extremities. The following venous structures were evaluated: common femoral vein, profunda vein, proximal portion of the greater saphenous vein, superficial femoral vein, and the popliteal vein. In addition, the posterior tibial veins were evaluated. FINDINGS: Normal 2-D Doppler and augmentation and compressibility throughout the lower extremity venous structures. Additional imaging through the proximal calf veins also reveals no thrombus. Limited evaluation of the greater saphenous vein is patent with no thrombus. CONCLUSIONS No DVT bilateral lower extremities. Dr. Mary Kay Arredondo DO (Electronically Signed) Final Date: 20 June 2025 08:55 S
--- NOTE | 2025-06-19 22:24 | P.HP_ITS ---
Providers/Chief Complaint 2 Primary Care Provider: Austyn Obregon Chief Complaint: SOB History of Present Illness Brielle Gaytan is a 79 year old female history of hypertension, venous stasis dermatitis, who presents [facility] due to altered mental status. Currently patient is alert to person, not in place, not in time, she moves bilateral upper and lower extremities, but is diffusely encephalopathic, she can answer at times basic yes or no questions, but other times she remains encephalopathic, GCS score is 10, she is on 5 L, heart rates in the 120s sinus tachycardia, blood pressure 129/73, no family members at bedside for history taking, patient has received a 500 mL normal saline, received vancomycin, [facility] hospitalist team was called for admission Review of Systems 2 Narrative: Cannot get a reliable review of system given encephalopathy Medications/Allergies Home Medications ?Medication ?Instructions ?Recorded ?Confirmed ?Last Taken ?Type aspirin 325 mg tablet (Lite Coat 325 mg PO DAILY 01/0801/08/21 Unknown History Aspirin) Allergies Allergy/AdvReac Type Severity Reaction Status Date / Time No Known Allergies Allergy Unverified 01/08/21 08:54 PFSH Acute 2 PFSH: Medical History HTN (hypertension) Venous stasis dermatitis Social History Smoking and tobacco/nicotine status: current every day tobacco/nicotine user cigarettes Packs smoked per day: 1 Years cigarettes smoked: 63 Vitals/I&O/Wt Last Vital Signs Temp 99.8 F H 06/19/25 19:12 Pulse 121 H 06/19/25 21:30 Resp 29 H 06/19/25 19:12 BP 129/73 06/19/25 21:30 Pulse Ox 92 06/19/25 21:30 O2 Del Method Nasal Cannula 06/19/25 21:30 O2 Flow Rate 5 06/19/25 21:30 06/19/25 06/19/25 06/19/25 06:59 14:59 22:59 Intake Total 550 / 550 Balance 550 / 550 Weight last 48 hrs Weight 101.877 kg Physical Exam 2 Narrative: Unkempt in appearance, Bilateral unkempt fingernails Const: COMMON NORMALS: no acute distress ORIENTATION/CONSCIOUSNESS: Yes awake and Yes confused; not oriented to person, not oriented to place and not oriented to time HENMT: COMMON NORMALS: normocephalic HEAD & SCALP: normocephalic Eye: COMMON NORMALS: Equal, round and reactive pupils present Resp: COMMON NORMALS: normal respiratory effort, No retractions, No use of accessory muscles and clear to auscultation bilaterally AUSCULTATION: c rackles and wheezes Cardio: COMMON NORMALS: regular rate, regular rhythm, S1 normal heart sound present and S2 normal heart sound present RATE: tachycardic RHYTHM: r egular rhythm HEART SOUNDS: S1 normal heart sound present and S2 normal heart sound present GI: COMMON NORMALS: Normal to inspection, nondistended, normoactive bowel sounds present, Soft to palpation and non-tender Extremity: NARRATIVE EXTREMITY EXAM: 2+ pitting edema bilateral onchomycosis, long toenails erythema, swelling, tenderness bilateral lower extremity Neuro: OTHER: doesnot follow neurologic testing Psych: COMMON NORMALS: mental status grossly normal Skin: NARRATIVE SKIN EXAM: Bilateral lower extremity Erythema, swelling, redness, bilateral lower extremity Left lower extremity extending up to the thigh Urinary Catheter Management: Milligan: Cath Placed During This Visit: yes Urinary Catheter Date of Insertion: 06/19/25 Data 06/19/25 19:27 06/19/25 19:27 Micro: Microbiology 06/19/25 19:30 Blood Culture - Preliminary Blood SPECIMEN COLLECTED 06/19/25 19:27 Blood Culture - Preliminary Blood SPECIMEN COLLECTED A&P Assessment and plan 1. Cellulitis: 2. Sepsis: 3. Acute hypoxic respiratory failure: 4. MICHOACANO (acute kidney injury): 5. NSTEMI (non-ST elevated myocardial infarction): 6. Acute encephalopathy: 7. Rhabdomyolysis: Plan: Acute encephalopathy -CT head no acute findings - Secondary to sepsis - Neurochecks - NIH stroke scale - Aspiration precautions - Keep n.p.o. Sepsis -Sepsis features met given tachycardia, febrile state, hypoxia, encephalopathy - Source concerning for cellulitis - Concern for pneumonia Cellulitis -Bilateral extremity -Vancomycin -Zosyn -Blood cultures - Venous ultrasound Acute hypoxic respiratory failure -On 5 L -Concerns for pneumonia -CT of the chest with contrast shows normal caliber pulmonary artery tree without visible filling defect -Plan -N.p.o. -Vancomycin -Zosyn -DuoNeb -Monitor respiratory status closely Elevated lactic acid, secondary to sepsis NSTEMI -Serial EKGs, serial troponins, telemetry monitoring -Cardiac echo Acute kidney injury -Secondary to sepsis, rhabdomyolysis -Monitor kidney function Rhabdomyolysis, monitor, for now hold off on IV fluids due to concerns for fluid overload Full code Lovenox for DVT prophylaxis PDMP PDMP Reviewed: Not Reviewed Attestations 2 Medical Necessity Statement*: Patient requires hospitalization, inpatient, greater than 2 midnights for sepsis, lactic acidosis, acute encephalopathy, acute respiratory failure, cellulitis Diagnoses Cellulitis L03.90 Sepsis A41.9 Acute hypoxic respiratory failure J96.01 MICHOACANO (acute kidney injury) N17.9 NSTEMI (non-ST elevated myocardial infarction) I21.4 Acute encephalopathy G93.40 Rhabdomyolysis M62.82 Sepsis Event Note Evaluation Current stage of sepsis: sepsis Possible source: pulmonary and skin/soft tissue Focused Exam Vital Signs Temp Pulse Resp BP Pulse Ox O2 Del Method O2 Flow Rate 06/19/25 21:30 121 H 129/73 92 Nasal Cannula 5 06/19/25 19:46 118 H 122/38 94 Nasal Cannula 3 06/19/25 19:12 99.8 F H 119 H 29 H 159/52 90 Room Air Respiratory exam: Present rales and wheezes Cardiovascular exam: Present tachycardia Capillary refill: > 3 Seconds Peripheral pulse strength: 1+ Faint Peripheral pulse location: Radial Skin exam: pale Date exam was performed: 06/19/25 Time exam was performed: 22:30 Problem List 1. Cellulitis: Status: Acute 2. Sepsis: Status: Acute 3. Acute hypoxic respiratory failure: Status: Acute 4. MICHOACANO (acute kidney injury): Status: Acute 5. NSTEMI (non-ST elevated myocardial infarction): Status: Acute 6. Acute encephalopathy: Status: Acute 7. Rhabdomyolysis: Status: Acute
[2025-06-19 23:36] LABS: Procalcitonin 6.48 ng/mL (0-0.5)
[2025-06-20] VITALS (65 sets, daily range): BP systolic 101–153; BP diastolic 26–74; PULSE 90–109; RESP 16–28; TEMP 37.2–38.1; O2SAT 76–96
--- NOTE | 2025-06-20 00:12 | PC.NURSE ---
Admitted pt from ED, was alert and oriented to self and place only, followed directions but with much encouragement. Overall appearance unkempt, significant odor noted, stool beneath fingernails and during turns patient attempted to scratch wounds. Upon turning noted significant redness, warmth to posterior left leg extending from mid thigh to ankle. Had multiple scratches and wounds ranging from 0.25 cm up to 4 cm, various sizes and depth into subcutaneous tissue, throughout buttocks and posterior thighs. Multiple open and closed blisters to lower legs, ankles, and feet with significant stasis dermatitis. Large pressure injury to left posterior upper thigh, stage 2, open and dusky red, surrounding tissue dusky and not blanchable, with areas of further unstageable closed injury surrounding. Unable to cover wounds as surrounding tissue was very fragile and flaky, risk for causing further damage with adhesive. Dr. Gonsales made aware.
[2025-06-20] MEDS: pantoprazole 40 mg SDV IVP ×2 (00:40→23:39)
[2025-06-20] MEDS: morphine 4 mg/mL SDV 1 mL 1 MG IVP (00:50)
[2025-06-20 01:20] LABS: Glucose Urine UA Negative (Normal); Nitrate Urine Negative (Negative)
[2025-06-20 01:25] LABS: Add Urine Microscopic? YES
--- NOTE | 2025-06-20 01:42 | ECG_ITS ---
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 Measurements Intervals [place] Rate: 102 P: 56 DE: 200 QRS: -40 QRSD: 96 T: 24 QT: 346 QTc: 452 Interpretive Statements SINUS TACHYCARDIA LEFT AXIS DEVIATION [QRS AXIS < -30] POSSIBLE ANTERIOR MYOCARDIAL INFARCTION , PROBABLY OLD [30 ms Q WAVE IN V3/V4, OR R < 0.2 mV IN V4] Compared to ECG 06/19/2025 23:01:11 Left-axis deviation now present Left anterior fascicular block no longer present Myocardial infarct finding still present Electronically Signed On 06-20-2025 09:24:05 CDT by Deonna Dumas M.D. [id number]
[2025-06-20 02:00] LABS: Specific Gravity, Urine 1.057 (1.005-1.030)
[2025-06-20 02:46] LABS: Hematocrit 42.3 % (36-47); Hemoglobin 13.50 g/dL (11.27-16.99); Mean Corpuscular HGB Conc 31.9 g/dL (30-55); Mean Corpuscular Hemoglobin 28.3 pg (27-33); Mean Corpuscular Volume 88.7 fl (85-98); Nucleated Red Blood Cells % 0 %; Platelet Count 298 10^3/cmm (157-399); Red Blood Count 4.77 10^6/uL (3.85-5.65)
[2025-06-20 03:00] LABS: White Blood Count 31.26 10^3/uL (3.29-11.43)
--- NOTE | 2025-06-20 03:04 | PC.NURSE ---
NIH score 16, patient was largely uncooperative for assessment. Does not follow commands well, but can reach for items she wants and has full ROM of upper ext. Would not move legs during assessment, but has been observed moving both to make small position changes and is able to bend to 90 degrees. Was able to name two items in pictures before closing her eyes and turning her head away. Oriented to self and place, but not time or situation. Dr. Gonsales made aware of NIH score, and patient's lack of participation during assessment.
[2025-06-20 03:09] LABS: Troponin 5 6HR 27.29 ng/L (0-10); Troponin 5 6HR Delta 8.29 ng/L (0-12)
[2025-06-20 03:14] LABS: Alanine Aminotransferase 19 U/L (0-33); Albumin Level 2.8 g/dL (3.5-5.2); Alkaline Phosphatase 79 U/L (35-105); Anion Gap 18.0 (5-19); Aspartate Amino Transferase 35 U/L (0-32); Blood Urea Nitrogen 18 mg/dL (8-23); Calcium 8.3 mg/dL (8.5-10.5); Carbon Dioxide 21 mmol/L (22-29); Chloride 100 mmol/L (98-107); Creatinine Clr Calc Pharmacy 52.1076; Globulin 3.7 g/dL (1.3-4.6); Glucose 103 mg/dL (65-115); Magnesium 2.1 mg/dL (1.7-2.3); Osmolality Calculated 282 mOsm/kg (285-295); Potassium 4.0 mmol/L (3.5-5.1); Sodium 135 mmol/L (136-145); Total Protein 6.5 g/dL (6.6-8.7)
[2025-06-20 03:18] LABS: Procalcitonin 7.14 ng/mL (0-0.5)
[2025-06-20 03:24] LABS: Cholesterol 93 mg/dL (0-200); HDL Cholesterol 28 mg/dL (60-100); Thyroid Stimulating Hormone 2.36 uIU/mL (0.27-4.20); Triglycerides 78 mg/dL (0-150)
[2025-06-20 03:54] LABS: Estmated Average Glucose 117; Hemoglobin A1C 5.7 % (4.0-6.0)
[2025-06-20] MEDS: piperacillin-tazobactam 3.375 GM in sodium chloride 0.9% (plus) 50 ML IV ×3 (04:08→20:12)
[2025-06-20] MEDS: albumin 25 G/100 ML BAG 60 G IV ×3 (04:48→20:07)
--- NOTE | 2025-06-20 09:00 | P.PN_ITS ---
Subjective 2 Subjective: overnight labs and H&P reviewed. Medications: Reviewed: Yes Vitals/I&O/Wt Last Vital Signs Temp 99.8 F H 06/20/25 19:28 Pulse 96 06/20/25 19:28 Resp 18 06/20/25 19:28 BP 124/64 06/20/25 19:28 Pulse Ox 96 06/20/25 19:28 O2 Del Method Nasal Cannula 06/20/25 15:57 O2 Flow Rate 5 06/20/25 12:30 06/20/25 06/20/25 06/21/25 14:59 22:59 06:59 Intake Total 500 / 500 750 / 1250 Output Total 1050 / 1050 Balance 500 / 500 -300 / 200 Weight last 48 hrs Weight 102.965 kg Weight 103 kg Weight 101.877 kg Physical Exam 2 Narrative: General: No acute distress, AO x1 HEENT: PERRLA, pupils bilaterally equal and reactive, pallors not present Chest: Normal vesicular breath sounds, no added sounds, equal good air entry bilaterally CVS: S1-S2 regular, no murmurs, no tachycardia, no gallops, no rubs Abdomen: Soft, nontender, no organomegaly, bowel sounds present Neuro: encephalopathy Extremities: LE cellulitis , lymhedema, stasis dermatitis ++ Urinary Catheter Management: Milligan: Cath Placed During This Visit: yes Reason for Continuing Indwelling Catheter: Other Urinary Catheter Date of Insertion: 06/19/25 Data 06/20/25 01:55 06/20/25 01:55 Micro: Microbiology 06/19/25 19:30 Blood Culture - Preliminary Blood NEGATIVE TO DATE 06/19/25 19:27 Blood Culture - Preliminary Blood NEGATIVE TO DATE 06/19/25 23:46 Blood Culture - Preliminary Blood SPECIMEN COLLECTED 06/19/25 23:35 Blood Culture - Preliminary Blood SPECIMEN COLLECTED A&P Assessment and plan 1. Cellulitis: 2. Sepsis: 3. Acute hypoxic respiratory failure: 4. MICHOACANO (acute kidney injury): 5. NSTEMI (non-ST elevated myocardial infarction): 6. Acute encephalopathy: 7. Rhabdomyolysis: Plan: Acute encephalopathy -CT head no acute findings - Secondary to sepsis - Neurochecks - NIH stroke scale - Aspiration precautions - Keep n.p.o. Sepsis -Sepsis features met given tachycardia, febrile state, hypoxia, encephalopathy - Source concerning for cellulitis - Concern for pneumonia Cellulitis -Bilateral extremity -Vancomycin -Zosyn -Blood cultures - Venous ultrasound Acute hypoxic respiratory failure -On 5 L -Concerns for pneumonia -CT of the chest with contrast shows normal caliber pulmonary artery tree without visible filling defect -Plan -N.p.o. -Vancomycin -Zosyn -DuoNeb -Monitor respiratory status closely Elevated lactic acid, secondary to sepsis NSTEMI -Serial EKGs, serial troponins, telemetry monitoring -Cardiac echo Acute kidney injury -Secondary to sepsis, rhabdomyolysis -Monitor kidney function Rhabdomyolysis, monitor, for now hold off on IV fluids due to concerns for fluid overload Full code Lovenox for DVT prophylaxis 06/20/25: Patient with chronic appearing LE lymphedema with dermatitis and verrucous changes p/w LE cellulitis and encephalopathy from sepsis. Continue Zosyn and vancimycin empirically. Await blood cx. monitor renal function. May transfer from ICU to med/surg given stable BP and HR. PDMP PDMP Reviewed: Not Reviewed Attestations 2 Medical Necessity Statement*: need for iv abx , awaiting blood cx, encephalopathy Coding Level of Care Code Acute Code for Chg Fwd High MDM includes number and complexity of problems actively addressed during encounter, amount and/or complexity of data reviewed/ordered and described risk of complication, morbidity or mortality of management as documented Diagnoses Cellulitis L03.90 Sepsis A41.9 Acute hypoxic respiratory failure J96.01 MICHOACANO (acute kidney injury) N17.9 NSTEMI (non-ST elevated myocardial infarction) I21.4 Acute encephalopathy G93.40 Rhabdomyolysis M62.82
--- NOTE | 2025-06-20 09:05 | PC.PHAR ---
Pt has asa 325mg daily verified 2023
--- NOTE | 2025-06-20 11:55 | XR_ITS ---
WS: [id number] XR chest 1V portable [id number] REASON FOR EXAM: Post PICC insertion FINDINGS: Right arm PICC line has been placed. The tip is in the mid to distal SVC. If any catheter remained it was recommended to advance another 1 to 2 cm. However, the PICC line will work appropriately in its current position. The above was discussed with the computed tomography technologist over the phone at 12:34 p.m. 06/20/2025. Cardiomegaly and central venous congestion. Compared to 06/19/2025 there may have been interval development of interstitial edema/congestive heart failure. XR/XR chest 1V portable [id number] IMPRESSION: PICC line placement as above. Possible interval congestive heart failure as above.
--- NOTE | 2025-06-20 13:02 | PICC.NOTE ---
Double lumen PICC placed to right basilic vein. Referred to vascular access nurse for PICC placement due to need for IV antibiotics. Risks and benefits discussed and informed consent obtained from pt son Sean, via phone. Right arm assessed with right basilic vein measuring 3.9 mm, straight, and apparent best choice for placement. Using sterile technique and MST, right basilic vein accessed x 1 stick. Mid-arm circumference measured 10 cm from right AC 33 cm. Trimmed cath 49 cm with 0 cm external length noted. CXR shows tip in SVC, in good position for use per radiologist. Line secured with stat-lock. Insertion site covered with Biopatch and TSM. Report given to bedside nurse, Mejia, RN.
--- NOTE | 2025-06-20 15:04 | PC.NURSE ---
Report was given to AYE Meadows in med surge. Patient was transferred with all their belongings. Patient was stable during transfer.
[2025-06-20 20:53] LABS: Bacillus cereus group Not Detected (NOT DETECT); Bacillus subtillis group Not Detected (NOT DETECT); Corynebacterium Not Detected (NOT DETECT); Cutibacterium acnes (P.acnes) Not Detected (NOT DETECT); Enterococcus faecalis Not Detected (NOT DETECT); Enterococcus faecium Not Detected (NOT DETECT); Listeria Not Detected (NOT DETECT); Micrococcus Not Detected (NOT DETECT); Pan Candida Not Detected (NOT DETECT); Pan Gram-Negative Not Detected (NOT DETECT); Staphylococcus epidermidis Not Detected (NOT DETECT); Staphylococcus lugdunensis Not Detected (NOT DETECT); Staphylococcus species Detected (NOT DETECT); Streptococcus anginosus group Not Detected (NOT DETECT); Streptococcus pyogenes Not Detected (NOT DETECT); Streptococcus species Not Detected (NOT DETECT); mecA Not Detected (NOT DETECT); mecC Not Detected (NOT DETECT)
--- NOTE | 2025-06-20 22:24 | USCV_ITS ---
Alex Gaytan Brielle Age: 79 Gender: F : 1945 Exam Date: 06/20/2025 02:22 Ordering Phys: Armaan Gonsales MD Technologist: NIKKIE Exam Location: [facility] – [place] Indication: nstemi, history of venous stasis, HTN, AMS, patient is unresponsive in ICU-3 BP: 134 / 52 HR: 95 Rhythm: Sinus Technical Quality: technically difficult MEASUREMENTS (Male / Female) Normal Values 2D ECHO LV Diastolic Diameter PLAX 2.9 cm 4.2 - 5.9 / 3.9 - 5.3 cm IVS Diastolic Thickness 1.9 cm 0.6 - 1.0 / 0.6 - 0.9 cm IVS Systolic Thickness 1.8 cm LVPW Diastolic Thickness 1.6 cm 0.6 - 1.0 / 0.6 - 0.9 cm LVPW Systolic Thickness 2.0 cm LVOT Diameter 1.7 cm LV Ejection Fraction 2D Teich 63.4 % LV Ejection Fraction MOD 4C 73.5 % LV Ejection Fraction MOD 2C 62.1 % LV Ejection Fraction 2C AL 61.7 % LA Diameter 3.5 cm Aorta at Sinotubular Diameter 2.7 cm IVC Diameter 1.1 cm M-MODE LA Ao Ratio MM 1.2 AV Cusp Separation MM 2.8 cm DOPPLER AV Peak Velocity 122.0 cm/s LVOT Peak Velocity 66.0 cm/s AV Area Cont Eq vti 1.1 cm squared AV Area Cont Eq pk 1.3 cm squared MV Peak Velocity 146.0 cm/s MV Area PHT 5.2 cm squared Mitral E to A Ratio 0.8 TR Peak Velocity 275.0 cm/s TR Peak Gradient 30.3 mmHg TV Peak E Velocity 52.0 cm/s PV Peak Velocity 125.0 cm/s FINDINGS Left Ventricle Normal left ventricular size and systolic function, EF 73%.mild left ventricular hypertrophy.no regional wall motion abnormalities. . Grade I/IV diastolic dysfunction (abnormal relaxation filling pattern), normal to mildly elevated filling pressures. Right Ventricle Echodense horizontal structure near to the RV apex, suggestive of moderator band Right Atrium The right atrium is normal in size. Left Atrium The left atrium is normal in size. Mitral Valve No gross abnormalities noted Aortic Valve No gross abnormalities noted Tricuspid Valve No gross abnormalities noted Pulmonic Valve No gross abnormalities noted Pericardium Normal pericardium without effusion. Aorta Mild to moderate diffuse plaques in the descending aorta IVC The inferior vena cava appears normal. CONCLUSIONS Normal left ventricular size and systolic function, EF 73%.mild left ventricular hypertrophy.no regional wall motion abnormalities. . Grade I/IV diastolic dysfunction (abnormal relaxation filling pattern), normal to mildly elevated filling pressures. Echodense horizontal structure near to the RV apex, suggestive of moderator band. Possibly normal cardiac chamber sizes. No gross valvular abnormalities noted, morphologic. There is no pericardial effusion. There are no intracardiac masses. No similar previous studies are available for comparison Dr Deonna Dumas MD FACC (Electronically Signed) Final Date: 20 June 2025 15:44 S
[2025-06-21] VITALS (16 sets, daily range): BP systolic 126–145; BP diastolic 61–85; PULSE 80–101; RESP 17–22; TEMP 36.7–37.2; O2SAT 83–96
[2025-06-21] MEDS: albumin 25 G/100 ML BAG 60 G IV ×3 (03:51→20:22)
[2025-06-21] MEDS: piperacillin-tazobactam 3.375 GM in sodium chloride 0.9% (plus) 50 ML IV (03:56)
[2025-06-21 05:25] LABS: Hematocrit 33.7 % (36-47); Hemoglobin 10.80 g/dL (11.27-16.99); Mean Corpuscular HGB Conc 32.0 g/dL (30-55); Mean Corpuscular Hemoglobin 28.3 pg (27-33); Mean Corpuscular Volume 88.2 fl (85-98); Nucleated Red Blood Cells % 0 %; Platelet Count 209 10^3/cmm (157-399); Red Blood Count 3.82 10^6/uL (3.85-5.65); White Blood Count 19.27 10^3/uL (3.29-11.43)
[2025-06-21 05:48] LABS: Alanine Aminotransferase 22 U/L (0-33); Albumin Level 3.4 g/dL (3.5-5.2); Alkaline Phosphatase 61 U/L (35-105); Anion Gap 14.7 (5-19); Aspartate Amino Transferase 50 U/L (0-32); Blood Urea Nitrogen 13 mg/dL (8-23); Calcium 8.6 mg/dL (8.5-10.5); Carbon Dioxide 21 mmol/L (22-29); Chloride 106 mmol/L (98-107); Creatinine Clr Calc Pharmacy 63.6760; Globulin 3.2 g/dL (1.3-4.6); Glucose 73 mg/dL (65-115); Osmolality Calculated 285 mOsm/kg (285-295); Potassium 3.7 mmol/L (3.5-5.1); Sodium 138 mmol/L (136-145); Total Protein 6.6 g/dL (6.6-8.7)
[2025-06-21 11:13] LABS: Iron 13 ug/dL (37-145); Total Iron Binding Capacity 99 mcg/dl; Unsaturated Iron Binding 86 ug/dL (112-347)
[2025-06-21 11:28] LABS: Procalcitonin 4.49 ng/mL (0-0.5); Vitamin B12 384 pg/mL (232-1245)
[2025-06-21 11:38] LABS: PCP Screen Urine Negative (Negative)
[2025-06-21] MEDS: ceFAZolin 2,000 mg SDV 2000 MG IVP ×2 (12:47→20:28)
[2025-06-21] MEDS: FUROsemide 10 mg/mL SDV 4mL 40 MG IVP (12:47)
--- NOTE | 2025-06-21 12:52 | P.PN_ITS ---
Subjective 2 Subjective: Today morning patient seen laying comfortably in bed. Awake and alert. Denies any nausea, vomiting, headache. Patient is alert and oriented to self, being in the hospital, date of , age. States she lives by herself. Vitals/I&O/Wt Last Vital Signs Temp 98.4 F 06/21/25 11:31 Pulse 80 06/21/25 11:31 Resp 17 06/21/25 11:31 BP 131/85 06/21/25 11:31 Pulse Ox 90 06/21/25 11:31 O2 Del Method Nasal Cannula 06/21/25 11:31 O2 Flow Rate 4 06/21/25 11:31 06/20/25 06/21/25 06/21/25 22:59 06:59 14:59 Intake Total 750 / 1250 640 / 1890 300 / 300 Output Total 1050 / 1050 400 / 1450 Balance -300 / 200 240 / 440 300 / 300 Weight last 48 hrs Weight 102.965 kg Weight 102.965 kg Weight 103 kg Weight 101.877 kg Physical Exam 2 Narrative: General: No acute distress, AO x 2 to 3 HEENT: PERRLA, pupils bilaterally equal and reactive, pallors not present Chest: Bilateral bronchial breath sounds over lung limon, occasional rhonchi, conductive airway respiratory sounds all over lung limon. CVS: S1-S2 regular, no murmurs, no tachycardia, no gallops, no rubs Abdomen: Soft, nontender, no organomegaly, bowel sounds present Neuro: encephalopathy Extremities: LE cellulitis , lymhedema, stasis dermatitis ++ Urinary Catheter Management: Milligan: Cath Placed During This Visit: yes Reason for Continuing Indwelling Catheter: Other Urinary Catheter Date of Insertion: 06/19/25 Data 06/21/25 05:07 06/21/25 05:07 Micro: Microbiology 06/21/25 05:07 Blood Culture - Preliminary Blood SPECIMEN COLLECTED 06/21/25 05:09 Blood Culture - Preliminary Blood SPECIMEN COLLECTED 06/19/25 23:35 Blood Culture - Preliminary Blood NEGATIVE TO DATE 06/19/25 23:46 Blood Culture - Preliminary Blood NEGATIVE TO DATE 06/19/25 19:30 Blood Culture - Preliminary Blood Staphylococcus species 06/19/25 19:27 Blood Culture - Preliminary Blood NEGATIVE TO DATE A&P Assessment and plan 1. Staphylococcus aureus bacteremia with sepsis: Blood cultures from admission 1 bottle positive for Staphylococcus aureus. Repeat blood culture sent on 06/21. Will consult ID for further recommendations. Check MRSA swab. Echocardiogram done. Concerning for echodense horizontal structure near RV apex which is suggestive of moderator band. Will confirm with cardiology regarding possibility of infective endocarditis given staph bacteremia. For now continue with IV vancomycin and Zosyn. Will change antibiotics as per ID recommendations. Patient will need at least 4 to 6 weeks of IV antibiotics after completion of IV antibiotic course. PICC line placed on 06/19 prior to blood cultures being reported positive. For now we will remove PICC line. Patient does have peripheral IV placed. 2. Cellulitis: Antibiotic as above. Continue to monitor. Concern for start of dermatitis. 3. Acute hypoxic respiratory failure: Unknown cause. Most likely in setting of aspiration. Appreciate CT chest and chest x-ray. Patient does have history of diastolic heart failure. Confirmed with echocardiogram. Echocardiogram done shows an EF of 73% with grade 1 diastolic dysfunction. Oxygen supplementation keeping saturation over 90%. Continue with Pulmicort twice daily, start on DuoNeb every 6 hour. IV Lasix 40 mg one-time. Strict input output charting, daily weights. Monitor renal functions. Out of bed to chair. Aggressive pulmonary toilet with chest vest. Incentive spirometry. Check sputum culture. 4. Acute encephalopathy: Seems to be resolving. Most likely in setting of sepsis along with acute kidney injury on admission. Continue to monitor. Aspiration precaution, fall precaution. Frequent reorientation. 5. MICHOACANO (acute kidney injury): Most likely in setting of dehydration, rhabdomyolysis and sepsis on admission. Resolving. Continue to monitor renal functions daily. 6. NSTEMI (non-ST elevated myocardial infarction): Ruled out. Most likely elevated troponins on admission due to sepsis and dehydration leading to MICHOACANO. Appreciate echocardiogram. Check A1c, lipid panel. 7. Rhabdomyolysis: Plan: CODE STATUS: Discussed today with the patient. Full code. Discussed about healthcare proxy. Patient wants her friend to make medical decisions. Will request case management for DPOA paperwork. Start on dysphagia level 5 diet. Advance as per speech evaluation. Protonix for PUD prophylaxis Lovenox for DVT prophylaxis PDMP PDMP Reviewed: Last Reviewed 06/21/25 10:39 by Bird Christensen MD Attestations 2 Medical Necessity Statement*: Requires further hospitalization for management of Staphylococcus bacteremia, sepsis, cellulitis, hypoxia, metabolic encephalopathy Diagnoses Staphylococcus aureus bacteremia with sepsis A41.01 Cellulitis L03.90 Site of cellulitis: extremity Site of cellulitis of extremity: lower extremity Acute hypoxic respiratory failure J96.01 Acute encephalopathy G93.40 MICHOACANO (acute kidney injury) N17.9 NSTEMI (non-ST elevated myocardial infarction) I21.4 Rhabdomyolysis M62.82
[2025-06-21 13:10] LABS: MRSA PCR OZH (swab) NOT DETECTED (Not Detecte)
--- NOTE | 2025-06-21 16:31 | XRR_ITS ---
PROCEDURE INFORMATION: Exam: XR Chest Exam date and time: 06/21/2025 4:47 PM Age: 79 years old Clinical indication: Other: Possible aspiration TECHNIQUE: Imaging protocol: Radiologic exam of the chest. Views: 1 view. COMPARISON: CR XR chest 1V portable [id number] 06/20/2025 12:28 PM FINDINGS: Lungs: No focal consolidation. Diffuse ill-defined reticular and ground-glass opacity throughout both lungs. Pleural spaces: There is no pleural effusion or pneumothorax. Heart/Mediastinum: There is moderate enlargement of the cardiac silhouette. Diaphragm: There is mild asymmetric elevation of the right hemidiaphragm. Bones/joints: Bones are unremarkable. XR/XR chest 1V portable [id number] IMPRESSION: Nonspecific diffuse bilateral pulmonary opacity is stable since 06/20/2025. Possible interstitial edema or atypical infection.
--- NOTE | 2025-06-21 16:45 | P.CONIM_ITS ---
Providers/Reason For Consult 2 Consulting Physician/Specialty*: Lindsey Yarbrough, Infectious disease Reason for Consult*: Staph aureus bacteremia Requesting Physician: Bird Christensen MD Attending Physician: Bird Christensen MD Primary Care Provider: Austyn Obregon History of Present Illness History of Present Illness Brielle Gaytan is a 79 year old female admitted to the hospital on June 19, 2025 with chief complaints of altered mental status, encephalopathy, MICHOACANO and lower extremity cellulitis. Patient was encephalopathic upon arrival and unable to provide much history. Today she is alert and awake. Patient states that she lives alone at home and got sick 2 to 3 days prior to admission. She was experiencing fever chills and lower extremity edema. She noticed her left lower extremity started becoming red warm and erythematous. Though she has bilateral lower extremity chronic stasis dermatitis changes, she states that she has never formally been diagnosed with lymphedema or heart failure. She denies any major medical comorbidities. Infectious disease service consulted today as patient has been found to have a Staph aureus bacteremia. Review of system is positive for cough, minimal expectoration, no hemoptysis. She denies any shortness of breath though is on 6 L/min supplemental O2 via oxy mask today. She denies being on any oxygen at home. She is a chronic smoker but has never formally been diagnosed with COPD or asthma. Review of Systems 2 General: Reports: 10 or more systems reviewed and unremarkable except in HPI and below Const: Denies: fever(s), chills or body aches Eyes: Denies: change in vision, blurry vision or photophobia ENMT: Reports: hoarseness; Denies: throat pain, enlarged tonsils, odynophagia or nasal congestion Card: Denies: chest pain, palpitations, irregular heart rhythm, edema, swelling of feet/ankles, lightheadedness, pre-syncope, dyspnea on exertion or orthopnea Resp: Denies: dyspnea, productive cough, non-productive cough, wheezing, stridor, pain on inspiration, change in phlegm color, hemoptysis or chest congestion GI: Denies: abdominal pain, nausea, vomiting, hematemesis, coffee ground emesis, dysphagia, heartburn, diarrhea, constipation, GI cramping, change in stool character, hematochezia or melena : Denies: flank pain, difficulty voiding, dysuria, urinary frequency, urinary urgency, urinary hesitancy or hematuria Musc: Denies: neck pain, back pain, extremity pain, joint swelling, joint warmth or deformity Neuro: Denies: headache(s), numbness in extremities, weakness in extremities, sensory changes, difficulty walking, frequent falls, dizziness, vertigo, behavioral changes, Slurred speech present or seizure-like activity Psych: Denies: anxiety, depression, suicidal ideation or homicidal ideation Endo: Denies: polyuria, polydipsia, tired all the time, cold intolerance or hot flashes Paxton/Lymph: Denies: easy bruising or easy bleeding Medications/Allergies Home Medications ?Medication ?Instructions ?Recorded ?Confirmed ?Last Taken ?Type No Known Home Medications 06/20/25 0805/09 Unknown History Allergies Allergy/AdvReac Type Severity Reaction Status Date / Time No Known Allergies Allergy Unverified 01/08/21 08:54 Current Medications Generic Name Dose Route Start Last Admin Trade Name Freq PRN Reason Stop Dose Admin Albuterol/Ipratropium 3 ml 06/21/25 14:00 06/21/25 13:09 Ipratropium-Albuterol 3 Ml Neb INHALATION 3 ml Q6H.RESP YI Administration Budesonide 0.5 mg 06/19/25 23:50 06/21/25 09:29 Budesonide 0.5 Mg/2 Ml Neb INHALATION 0.5 mg BID.RESPIRATORY YI Administration Cefazolin Sodium 2,000 mg 06/21/25 12:15 06/21/25 12:47 Cefazolin 2,000 Mg Sdv IVP 2,000 mg Q8H YI Administration Protocol Enoxaparin Sodium 40 mg 06/19/25 23:50 06/20/25 23:39 Enoxaparin 40 Mg/0.4 Ml Syringe SUBCUT 40 mg Q24H YI Administration Vancomycin HCl 750 mg/ Sodium 250 mls @ 250 mls/hr 06/20/25 09:30 06/21/25 10:33 Chloride IV Infused Q12H YI Infusion Albumin Human 25 g in 100 mls @ 60 mls/hr 06/20/25 04:15 06/21/25 14:00 Albumin IV Infused Q8H YI Infusion Morphine Sulfate 1 mg 06/19/25 23:50 06/20/25 00:50 Morphine 4 Mg/Ml Sdv 1 Ml IVP 1 mg Q4H PRN Administration SEVERE PAIN Pantoprazole Sodium 40 mg 06/19/25 23:50 06/20/25 23:39 Pantoprazole 40 Mg Sdv IVP 40 mg Q24H YI Administration PFSH Acute 2 PFSH: Medical History Staphylococcus aureus bacteremia with sepsis Diastolic dysfunction CKD (chronic kidney disease) HTN (hypertension) Venous stasis dermatitis Social History Smoking and tobacco/nicotine status: current every day tobacco/nicotine user cigarettes Packs smoked per day: 1 Years cigarettes smoked: 63 Vitals/I&O/Wt Last Vital Signs Temp 98.0 F 06/21/25 15:54 Pulse 98 06/21/25 16:38 Resp 20 H 06/21/25 16:38 BP 134/61 06/21/25 15:54 Pulse Ox 95 06/21/25 16:38 O2 Del Method Oxymask 06/21/25 16:38 O2 Flow Rate 6 06/21/25 16:38 06/21/25 06/21/25 06/21/25 06:59 14:59 22:59 Intake Total 640 / 1890 400 / 400 Output Total 400 / 1450 1850 / 1850 Balance 240 / 440 400 / 400 -1850 / -1450 Weight last 48 hrs Weight 102.965 kg Weight 102.965 kg Weight 103 kg Weight 101.877 kg Physical Exam 2 Narrative: General: No acute distress, AO x3 HEENT: PERRLA, pupils bilaterally equal and reactive, pallors not present Chest: Normal vesicular breath sounds, no added sounds, equal good air entry bilaterally CVS: S1-S2 regular, no murmurs, no tachycardia, no gallops, no rubs Abdomen: Soft, nontender, no organomegaly, bowel sounds present Neuro: No focal deficits, no facial deformity, AO x3, power 5/5 in all limbs Extremities: Bilateral lower extremity edema, changes of chronic venous dermatitis Urinary Catheter Management: Milligan: Cath Placed During This Visit: yes Reason for Continuing Indwelling Catheter: Other Urinary Catheter Date of Insertion: 06/19/25 Data 06/21/25 05:07 06/21/25 05:07 Micro: Microbiology 06/21/25 05:07 Blood Culture - Preliminary Blood SPECIMEN COLLECTED 06/21/25 05:09 Blood Culture - Preliminary Blood SPECIMEN COLLECTED 06/19/25 23:35 Blood Culture - Preliminary Blood NEGATIVE TO DATE 06/19/25 23:46 Blood Culture - Preliminary Blood NEGATIVE TO DATE 06/19/25 19:30 Blood Culture - Preliminary Blood Staphylococcus species 06/19/25 19:27 Blood Culture - Preliminary Blood NEGATIVE TO DATE A&P Assessment and plan 1. Staphylococcus aureus bacteremia with sepsis: 2. Cellulitis: 3. Acute encephalopathy: 4. Acute hypoxic respiratory failure: Plan: Patient is an 79-year-old female who denies any known past medical comorbidities presenting to the hospital with chief complaints of acute encephalopathy, left lower extremity cellulitis in the setting of having some chronic stasis dermatitis changes and found to have a Staph aureus bacteremia. Blood cultures as noted positive from admission. Repeat blood cultures taken this morning are currently pending to a certain clearance. Patient had a PICC line placed upon admission which would need to be removed now that staff aureus bacteremia has been detected. Recommend to only continue with peripheral IVs at this point until bacteremia clearance can be demonstrated for at least 48 to 72 hours. WBC count is trending down from 31,000-19,000 today. Patient's encephalopathy is improving. She is alert awake and oriented able to have a conversation. Source of the bacteremia appears to be left lower extremity cellulitis. TTE taken today showing LVEF of 73%, mild LVH, grade 1 diastolic dysfunction. Normal to mildly elevated filling pressure. There was noted to be an echodense structure along the RV apex suggesting a moderator band. No evidence of any vegetation on the transthoracic echocardiogram. CT of the chest abdomen and pelvis was taken upon admission which did not show any consolidation. No obvious abdominal source of infection. Bones and tissues visualized without any acute fracture or destructive lesions.patient denies any back pain. Given recovery of Staph aureus bacteremia with unknown duration of symptoms, will prefer to treat with any prolonged course of antibiotics to let you know 4 to 6 weeks. Will follow final culture results to establish whether MSSA versus MRSA, will follow cultures to determine clearance. Will continue to follow along. PDMP PDMP Reviewed: Not Reviewed Consult Attestations 2 Medical Necessity Statement: Per admitting Coding Level of Care Code Acute Code for Chg Fwd High MDM includes number and complexity of problems actively addressed during encounter, amount and/or complexity of data reviewed/ordered and described risk of complication, morbidity or mortality of management as documented Diagnoses Staphylococcus aureus bacteremia with sepsis A41.01 Cellulitis L03.90 Acute encephalopathy G93.40 Acute hypoxic respiratory failure J96.01
[2025-06-21] MEDS: pantoprazole 40 mg SDV IVP (23:32)
[2025-06-22] VITALS (12 sets, daily range): BP systolic 119–169; BP diastolic 60–74; PULSE 80–93; RESP 16–22; TEMP 36.4–37.3; O2SAT 88–97
[2025-06-22] MEDS: albumin 25 G/100 ML BAG 60 G IV ×3 (04:28→21:40)
[2025-06-22] MEDS: ceFAZolin 2,000 mg SDV 2000 MG IVP ×3 (04:45→23:39)
[2025-06-22 05:40] LABS: Hematocrit 35.3 % (36-47); Hemoglobin 11.30 g/dL (11.27-16.99); Mean Corpuscular HGB Conc 32.0 g/dL (30-55); Mean Corpuscular Hemoglobin 28.1 pg (27-33); Mean Corpuscular Volume 87.8 fl (85-98); Nucleated Red Blood Cells % 0 %; Platelet Count 206 10^3/cmm (157-399); Red Blood Count 4.02 10^6/uL (3.85-5.65); White Blood Count 14.42 10^3/uL (3.29-11.43)
[2025-06-22 05:59] LABS: Alanine Aminotransferase 20 U/L (0-33); Albumin Level 3.4 g/dL (3.5-5.2); Alkaline Phosphatase 67 U/L (35-105); Anion Gap 15.4 (5-19); Aspartate Amino Transferase 37 U/L (0-32); Blood Urea Nitrogen 17 mg/dL (8-23); Calcium 8.5 mg/dL (8.5-10.5); Carbon Dioxide 23 mmol/L (22-29); Chloride 102 mmol/L (98-107); Creatinine Clr Calc Pharmacy 62.4911; Globulin 3.3 g/dL (1.3-4.6); Glucose 121 mg/dL (65-115); Osmolality Calculated 287 mOsm/kg (285-295); Potassium 3.4 mmol/L (3.5-5.1); Sodium 137 mmol/L (136-145); Total Protein 6.7 g/dL (6.6-8.7)
[2025-06-22 06:00] LABS: Magnesium 2.2 mg/dL (1.7-2.3)
--- NOTE | 2025-06-22 09:58 | FL_ITS ---
WS: [id number] FL barium swallow modifd [id number] REASON FOR EXAM: Other dysphagia FLUOROSCOPY TIME: 3min [id number] # OF SPOT FILMS: 0 TECHNIQUE: Examination was supervised by the speech therapy department. Patient was examined in the sitting upright lateral projection. The swallowing of varying consistencies and textures of barium was monitored fluoroscopically and video recorded. FINDINGS: No aspiration. Minimal penetration of contrast into the laryngeal vestibule with thin liquids. Episodes of lower esophageal sphincter spasm and tertiary contractions seen in the thoracic esophagus with retention of ingested contrast with esophageal esophageal reflux to the thoracic inlet. FL/FL barium swallow modifd [id number] IMPRESSION: A detailed report of the swallowing will be rendered by the speech therapy depa rtment. Laryngeal vestibule penetration. Distal esophageal motility.
--- NOTE | 2025-06-22 10:11 | PC.SLP ---
MBS ordered. Procedure time is at 1300. Hold off on treatment as of now.
--- NOTE | 2025-06-22 11:44 | CTR_ITS ---
PROCEDURE INFORMATION: Exam: CT Left Lower Extremity With Contrast, Foot Exam date and time: 06/22/2025 5:47 PM Age: 79 years old Clinical indication: Cellulitis to left foot. ; Additional info: Assess for abscess, lle cellulitis and bacteremia on treatment with changes TECHNIQUE: Imaging protocol: CT of the left lower extremity with intravenous contrast was performed. Exam focused on the foot. Radiation optimization: All CT scans at this facility use at least one of these dose optimization techniques: automated exposure control; mA and/or kV adjustment per patient size (includes targeted exams where dose is matched to clinical indication); or iterative reconstruction. Contrast material: OMNI 350; Contrast volume: 200 ml; Contrast route: INTRAVENOUS (IV); COMPARISON: CR (LOW EXM, ) 06/19/2025 7:14 PM RADIATION DOSE METRICS: Total DLP (mGy-cm): 361.56 FINDINGS: Bones/joints: Normal. No acute fracture or dislocation. Soft tissues: Skin thickening and subcutaneous stranding throughout the soft tissues of the ankle and including the dorsum of the foot, nonspecific although concerning for cellulitis. No localized fluid collection to suggest abscess amenable to percutaneous drainage. CT/CT foot LT w con [id number] IMPRESSION: Skin thickening and subcutaneous stranding throughout the soft tissues of the ankle and including the dorsum of the foot, nonspecific although concerning for cellulitis. No localized fluid collection to suggest abscess amenable to percutaneous drainage.
--- NOTE | 2025-06-22 12:20 | P.CONIM_ITS ---
Providers/Reason For Consult 2 Consulting Physician/Specialty*: Dr. Kole Ricks, Werner.P.M./podiatry Reason for Consult*: Left leg cellulitis, onychomycosis Attending Physician: Bird Christensen MD Primary Care Provider: Austyn Obregon History of Present Illness History of Present Illness Brielle Gaytan is a 79 year old female who presented to the ER on 06/19/2025 over concerns of altered mental status. Patient was admitted for cellulitis and sepsis with left leg being source. Patient states that she had never seen a provider for her feet or lower extremities. Has not had any compressive wrap or compression therapy to lower extremities. Further workup revealed Staph aureus bacteremia. Podiatry was consulted to evaluate and provide further treatment recommendations. Review of Systems 2 General: Reports: 10 or more systems reviewed and unremarkable except in HPI and below Const: Denies: fever(s), chills, body aches or change in appetite Eyes: Denies: change in vision or blurry vision Card: Denies: chest pain, palpitations or irregular heart rhythm Resp: Denies: dyspnea GI: Denies: abdominal pain, nausea, vomiting or diarrhea Musc: Reports: joint stiffness Skin/Breast: Reports: non-healing lesions and lesions Neuro: Reports: numbness in extremities Medications/Allergies Home Medications ?Medication ?Instructions ?Recorded ?Confirmed ?Last Taken ?Type No Known Home Medications 06/20/25 0805/09 Unknown History Allergies Allergy/AdvReac Type Severity Reaction Status Date / Time No Known Allergies Allergy Unverified 01/08/21 08:54 Current Medications Generic Name Dose Route Start Last Admin Trade Name Freq PRN Reason Stop Dose Admin Albuterol/Ipratropium 3 ml 06/21/25 14:00 06/22/25 08:44 Ipratropium-Albuterol 3 Ml Neb INHALATION 3 ml Q6H.RESP YI Administration Budesonide 0.5 mg 06/19/25 23:50 06/22/25 08:44 Budesonide 0.5 Mg/2 Ml Neb INHALATION 0.5 mg BID.RESPIRATORY YI Administration Cefazolin Sodium 2,000 mg 06/21/25 12:15 06/22/25 12:03 Cefazolin 2,000 Mg Sdv IVP 2,000 mg Q8H YI Administration Protocol Enoxaparin Sodium 40 mg 06/19/25 23:50 06/21/25 23:32 Enoxaparin 40 Mg/0.4 Ml Syringe SUBCUT 40 mg Q24H YI Administration Albumin Human 25 g in 100 mls @ 60 mls/hr 06/20/25 04:15 06/22/25 12:03 Albumin IV 60 mls/hr Q8H YI Administration Vancomycin HCl 1,000 mg/ 250 mls @ 250 mls/hr 06/21/25 21:30 06/22/25 09:41 Sodium Chloride IV Infused Q12H YI Infusion Morphine Sulfate 1 mg 06/19/25 23:50 06/20/25 00:50 Morphine 4 Mg/Ml Sdv 1 Ml IVP 1 mg Q4H PRN Administration SEVERE PAIN Pantoprazole Sodium 40 mg 06/19/25 23:50 06/21/25 23:32 Pantoprazole 40 Mg Sdv IVP 40 mg Q24H YI Administration PFSH Acute 2 PFSH: Medical History (Updated 06/22/25 @ 12:33 by Kole Ricks DPM) Venous stasis dermatitis Staphylococcus aureus bacteremia with sepsis Diastolic dysfunction CKD (chronic kidney disease) HTN (hypertension) Social History Smoking and tobacco/nicotine status: current every day tobacco/nicotine user cigarettes Packs smoked per day: 1 Years cigarettes smoked: 63 Vitals/I&O/Wt Last Vital Signs Temp 97.9 F 06/22/25 11:35 Pulse 86 06/22/25 11:35 Resp 18 06/22/25 11:35 BP 119/72 06/22/25 11:35 Pulse Ox 94 06/22/25 11:35 O2 Del Method Oxymask 06/22/25 11:35 O2 Flow Rate 4 06/22/25 08:00 06/21/25 06/22/25 06/22/25 22:59 06:59 14:59 Intake Total 350 / 750 100 / 850 250 / 250 Output Total 2300 / 2300 200 / 2500 Balance -1950 / -1550 -100 / -1650 250 / 250 Weight last 48 hrs Weight 218 lb 11.2 oz Weight 227 lb Physical Exam 2 Narrative: BELOW IS A FOCUSED LOWER EXTREMITY EXAM GENERAL: A&O x 3 VASCULAR: DP/PT pulses diminished secondary to pitting edema. +2 pitting edema DERMATOLOGICAL: Severe, chronic venous stasis changes to bilateral lower extremities with stasis dermatitis to the left lower extremity with +2 pitting edema. No appreciable area of abscess or drainable fluid collection. MUSCULOSKELETAL: Pain with palpation of the left leg and foot NEUROLOGICAL: Neurological sensation to the affected foot and ankle is present through L4-S1 dermatomes with no hyper/hypoesthesias, negative Tinel or Valleix's sign IMAGING: Venous duplex ultrasound left lower extremity negative for DVT. CT scan left lower extremity pending. Urinary Catheter Management: Milligan: Cath Placed During This Visit: yes Reason for Continuing Indwelling Catheter: Other Urinary Catheter Date of Insertion: 06/19/25 Data 06/22/25 04:50 06/22/25 04:50 Micro: Microbiology 06/21/25 05:09 Blood Culture - Preliminary Blood NEGATIVE TO DATE 06/21/25 05:07 Blood Culture - Preliminary Blood NEGATIVE TO DATE A&P Assessment and plan 1. Sepsis: * Suspected source left leg * WBC 36.26 on admission--questionable if left leg is single source for leukocytosis * CRP to 231.2 * HR 98 * RR 28 * Temp 98 2. Cellulitis: * Left lower extremity cellulitis likely secondary to stasis dermatitis * Continue IV antibiotic therapy * Monitor * See below 3. Venous stasis dermatitis of both lower extremities: * Left lower extremity stasis dermatitis causing cellulitis. Likely source of sepsis * No appreciable fluid collection or underlying abscess on physical exam CT scan pending * Multilayer compression wrap applied to left lower extremity * Wrap to be removed on 06/24/2025 by podiatry to assess for improvement 4. 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
--- NOTE | 2025-06-22 12:36 | P.PN_ITS ---
Subjective 2 Subjective: Infectious disease progress note Patient continues to complain of pain of the affected extremity Ordered for CT of the extremity today. Medications: Reviewed: Yes Vitals/I&O/Wt Last Vital Signs Temp 97.9 F 06/22/25 11:35 Pulse 86 06/22/25 11:35 Resp 18 06/22/25 11:35 BP 119/72 06/22/25 11:35 Pulse Ox 94 06/22/25 11:35 O2 Del Method Oxymask 06/22/25 11:35 O2 Flow Rate 4 06/22/25 08:00 06/21/25 06/22/25 06/22/25 22:59 06:59 14:59 Intake Total 350 / 750 100 / 850 250 / 250 Output Total 2300 / 2300 200 / 2500 Balance -1950 / -1550 -100 / -1650 250 / 250 Weight last 48 hrs Weight 99.201 kg Weight 102.965 kg Physical Exam 2 Narrative: General: No acute distress, AO x3 HEENT: PERRLA, pupils bilaterally equal and reactive, pallors not present Chest: Normal vesicular breath sounds, no added sounds, equal good air entry bilaterally CVS: S1-S2 regular, no murmurs, no tachycardia, no gallops, no rubs Abdomen: Soft, nontender, no organomegaly, bowel sounds present Neuro: No focal deficits, no facial deformity, AO x3, power 5/5 in all limbs Extremities: Bilateral lower extremity edema, changes of chronic venous dermatitis Urinary Catheter Management: Milligan: Cath Placed During This Visit: yes Reason for Continuing Indwelling Catheter: Other Urinary Catheter Date of Insertion: 06/19/25 Data 06/22/25 04:50 06/22/25 04:50 Micro: Microbiology 06/21/25 05:09 Blood Culture - Preliminary Blood NEGATIVE TO DATE 06/21/25 05:07 Blood Culture - Preliminary Blood NEGATIVE TO DATE A&P Assessment and plan 1. Staphylococcus aureus bacteremia with sepsis: 2. Cellulitis: 3. Acute encephalopathy: 4. Acute hypoxic respiratory failure: Plan: Patient is an 79-year-old female who denies any known past medical comorbidities presenting to the hospital with chief complaints of acute encephalopathy, left lower extremity cellulitis in the setting of having some chronic stasis dermatitis changes and found to have a Staph aureus bacteremia. Blood cultures as noted positive from admission. Repeat blood cultures taken this morning are currently pending to a certain clearance. Patient had a PICC line placed upon admission which would need to be removed now that staff aureus bacteremia has been detected. Recommend to only continue with peripheral IVs at this point until bacteremia clearance can be demonstrated for at least 48 to 72 hours. WBC count is trending down from 31,000-19,000 today. Patient's encephalopathy is improving. She is alert awake and oriented able to have a conversation. Source of the bacteremia appears to be left lower extremity cellulitis. TTE taken today showing LVEF of 73%, mild LVH, grade 1 diastolic dysfunction. Normal to mildly elevated filling pressure. There was noted to be an echodense structure along the RV apex suggesting a moderator band. No evidence of any vegetation on the transthoracic echocardiogram. CT of the chest abdomen and pelvis was taken upon admission which did not show any consolidation. No obvious abdominal source of infection. Bones and tissues visualized without any acute fracture or destructive lesions.patient denies any back pain. Given recovery of Staph aureus bacteremia with unknown duration of symptoms, will prefer to treat with any prolonged course of antibiotics to let you know 4 to 6 weeks. Will follow final culture results to establish whether MSSA versus MRSA, will follow cultures to determine clearance. Will continue to follow along. June 22, 2025 Blood cultures have been updated today to now reflect Staphylococcus species only. Based on direct PCR this does not appear to be Staph aureus or staph lugdunensis or Staph epidermidis. Will await final identification and sensitivity results from micro scan. Follow-up blood culture thus far negative. White blood cell count down to 14,000 today. Tmax 99 Fahrenheit. Continues to have significant swelling over the plantar aspect of the left foot. Will obtain CT of the affected extremity to evaluate for any drainable abscess. Will continue to follow PDMP PDMP Reviewed: Not Reviewed Attestations 2 Medical Necessity Statement*: per admitting Coding Level of Care Code Acute Code for Chg Fwd Moderate MDM includes number and complexity of problems actively addressed during encounter, amount and/or complexity of data reviewed/ordered and described risk of complication, morbidity or mortality of management as documented Diagnoses Staphylococcus aureus bacteremia with sepsis A41.01 Cellulitis L03.90 Site of cellulitis: extremity Site of cellulitis of extremity: lower extremity Acute encephalopathy G93.40 Acute hypoxic respiratory failure J96.01
--- NOTE | 2025-06-22 14:12 | P.PN_ITS ---
Subjective 2 Subjective: No acute events overnight. Today morning patient seen laying comfortably in bed. Awake and alert to self, being in the hospital, date of , personal address. Denies any nausea and vomiting. Denies any difficulty in breathing today. Currently on 4 L oxime mask saturating 94%. Desaturating down to 88% on room air. Medications: Reviewed: Yes Vitals/I&O/Wt Last Vital Signs Temp 97.9 F 06/22/25 11:35 Pulse 86 06/22/25 11:35 Resp 18 06/22/25 11:35 BP 119/72 06/22/25 11:35 Pulse Ox 94 06/22/25 11:35 O2 Del Method Oxymask 06/22/25 11:35 O2 Flow Rate 4 06/22/25 08:00 06/21/25 06/22/25 06/22/25 22:59 06:59 14:59 Intake Total 350 / 750 100 / 850 350 / 350 Output Total 2300 / 2300 200 / 2500 Balance -1950 / -1550 -100 / -1650 350 / 350 Weight last 48 hrs Weight 99.201 kg Weight 102.965 kg Physical Exam 2 Narrative: General: No acute distress, AO x 2 to 3 HEENT: PERRLA, pupils bilaterally equal and reactive, pallors not present Chest: Bilateral bronchial breath sounds over lung limon, occasional rhonchi, conductive airway respiratory sounds all over lung limon. CVS: S1-S2 regular, no murmurs, no tachycardia, no gallops, no rubs Abdomen: Soft, nontender, no organomegaly, bowel sounds present Neuro: encephalopathy Extremities: LE cellulitis , lymhedema, stasis dermatitis ++ Urinary Catheter Management: Milligan: Cath Placed During This Visit: yes Reason for Continuing Indwelling Catheter: Other Urinary Catheter Date of Insertion: 06/19/25 Data 06/22/25 04:50 06/22/25 04:50 Micro: Microbiology 06/21/25 05:09 Blood Culture - Preliminary Blood NEGATIVE TO DATE 06/21/25 05:07 Blood Culture - Preliminary Blood NEGATIVE TO DATE A&P Assessment and plan 1. Staphylococcus aureus bacteremia with sepsis: Blood culture results today changed to Staphylococcus species from Staph aureus. Follow-up repeat blood culture from 06/21. Will await complete sensitivity and specification. Appreciate ID recommendation. MRSA swab negative. Appreciate echocardiogram negative for infective endocarditis. Echodense structure in RV consistent with moderator band as per cardiology conversations. Continue with empiric IV cefazolin and vancomycin for now. Further antibiotics as per ID recommendation. Appreciate CT chest abdomen pelvis done on admission. 2. Cellulitis: Antibiotic as above. Continue to monitor. Concern for statis dermatitis. Will plan for CT foot with and without contrast for further recommendation. Check ESR, CRP. Will consult podiatry for further recommendations. 3. Acute encephalopathy: Seems to be resolving. Most likely in setting of sepsis along with acute kidney injury on admission. Continue to monitor. Aspiration precaution, fall precaution. Frequent reorientation. Out of bed to chair. Physical therapy. 4. Acute hypoxic respiratory failure: Unknown cause. Most likely in setting of aspiration. Appreciate CT chest and chest x-ray. Oxygen supplementation keeping saturation over 88%. Patient does have history of diastolic heart failure. Confirmed with echocardiogram. Echocardiogram done shows an EF of 73% with grade 1 diastolic dysfunction. Oxygen supplementation keeping saturation over 90%. Continue with Pulmicort twice daily, start on DuoNeb every 6 hour. Repeat IV Lasix 40 mg one-time. Strict input output charting, daily weights. Monitor renal functions. Out of bed to chair. Aggressive pulmonary toilet with chest vest. Incentive spirometry. Follow-up sputum culture. Advance diet as per speech evaluation. Plan for modified barium swallow today. High concern for patient having concerns for impulsive feeding and most likely would be a feeder. 5. MICHOACANO (acute kidney injury): Most likely in setting of dehydration, rhabdomyolysis and sepsis on admission. Resolving. Continue to monitor renal functions daily. 6. NSTEMI (non-ST elevated myocardial infarction): Ruled out. Most likely elevated troponins on admission due to sepsis and dehydration leading to MICHOACANO. Appreciate echocardiogram. Appreciate A1c, lipid panel. 7. Rhabdomyolysis: 8. Left breast mass: Seen on CT chest. Will plan for mammogram as an outpatient. 9. Arteriosclerosis of mesenteric artery: Seen on CT abdomen w contrast- Advanced arterial disease noted with potential for hemodynamically significant stenoses of the celiac and SMA as well as the right common iliac artery. No current findings of bowel ischemia or infarction. Start on aspirin 81 mg daily. Will plan for starting of packing next 2 weeks as patient is recovering from rhabdomyolysis. Plan: CODE STATUS: Discussed today with the patient. Full code. Discussed about healthcare proxy. Patient wants her friend to make medical decisions. Will request case management for DPOA paperwork. NPO. Advance per speech evaluation modified barium swallow. Protonix for PUD prophylaxis Lovenox for DVT prophylaxis Discharge plan: Plan to discharge to SNF for further rehabilitation and possible IV antibiotic need. Patient agreeable. PDMP PDMP Reviewed: Last Reviewed 06/21/25 10:39 by Bird Christensen MD Attestations 2 Medical Necessity Statement*: Requires further hospitalization for management of Staphylococcus bacteremia, sepsis, cellulitis, hypoxia, in setting of aspiration pneumonia, metabolic encephalopathy while safe discharge planning is sought. Diagnoses Staphylococcus aureus bacteremia with sepsis A41.01 Cellulitis L03.90 Site of cellulitis: extremity Site of cellulitis of extremity: lower extremity Acute encephalopathy G93.40 Acute hypoxic respiratory failure J96.01 MICHOACANO (acute kidney injury) N17.9 NSTEMI (non-ST elevated myocardial infarction) I21.4 Rhabdomyolysis M62.82 Left breast mass N63.20 Arteriosclerosis of mesenteric artery K55.1
--- NOTE | 2025-06-22 15:07 | PC.SOCIAL ---
IMM update pg 2 of IMM updated and reviewed w/ patient. Copy provided and copy dated, initialed and placed in chart.
[2025-06-22] MEDS: iohexol 350 mg/mL 500 mL Btl (per mL) IV (17:57)
[2025-06-22] MEDS: pantoprazole 40 mg SDV IVP (23:38)
[2025-06-23] VITALS (12 sets, daily range): BP systolic 121–163; BP diastolic 52–74; PULSE 81–92; RESP 17–21; TEMP 36.6–36.8; O2SAT 90–97
[2025-06-23] MEDS: morphine 4 mg/mL SDV 1 mL 1 MG IVP ×2 (01:21→23:11)
[2025-06-23 04:04] LABS: Hematocrit 34.6 % (36-47); Hemoglobin 11.20 g/dL (11.27-16.99); Mean Corpuscular HGB Conc 32.4 g/dL (30-55); Mean Corpuscular Hemoglobin 28.1 pg (27-33); Mean Corpuscular Volume 86.9 fl (85-98); Nucleated Red Blood Cells % 0 %; Platelet Count 216 10^3/cmm (157-399); Red Blood Count 3.98 10^6/uL (3.85-5.65); White Blood Count 11.38 10^3/uL (3.29-11.43)
[2025-06-23 04:21] LABS: Alanine Aminotransferase 15 U/L (0-33); Albumin Level 3.7 g/dL (3.5-5.2); Alkaline Phosphatase 64 U/L (35-105); Anion Gap 15.4 (5-19); Aspartate Amino Transferase 31 U/L (0-32); Blood Urea Nitrogen 12 mg/dL (8-23); Calcium 8.3 mg/dL (8.5-10.5); Carbon Dioxide 26 mmol/L (22-29); Chloride 102 mmol/L (98-107); Creatinine Clr Calc Pharmacy 70.3024; Globulin 2.3 g/dL (1.3-4.6); Glucose 101 mg/dL (65-115); Osmolality Calculated 290 mOsm/kg (285-295); Potassium 3.4 mmol/L (3.5-5.1); Sodium 140 mmol/L (136-145); Total Protein 6.0 g/dL (6.6-8.7)
[2025-06-23 04:23] LABS: Magnesium 2.3 mg/dL (1.7-2.3)
[2025-06-23] MEDS: ceFAZolin 2,000 mg SDV 2000 MG IVP ×3 (06:07→23:08)
[2025-06-23] MEDS: albumin 25 G/100 ML BAG 60 G IV (06:33)
--- NOTE | 2025-06-23 11:21 | PC.SLP ---
Pt checked on pt with nursing. Nursing reported no new concerns. Nursing reported that the feeder did not report concern. The patient was up in chair and reported that she was tired. Therapist will let patient rest. Therapist encouraged nursing to contact therapist if new concerns arise.
--- NOTE | 2025-06-23 12:09 | P.PN_ITS ---
Subjective 2 Subjective: No acute events overnight. Today morning patient seen sitting up in recliner. Denies any nausea, vomiting, headache. Eating as per nursing staff. Seems to be getting back to her baseline mentation. Continues to remain on oxime mask maintaining saturation of 95%. Turned down to 3 L during examination saturating persistently more than 95. Medications: Reviewed: Yes Vitals/I&O/Wt Last Vital Signs Temp 97.9 F 06/23/25 11:32 Pulse 86 06/23/25 11:32 Resp 18 06/23/25 11:32 BP 148/53 06/23/25 11:32 Pulse Ox 95 06/23/25 11:32 O2 Del Method Oxymask 06/23/25 11:32 O2 Flow Rate 5 06/23/25 08:00 06/22/25 06/23/25 06/23/25 22:59 06:59 14:59 Intake Total 240 / 590 350 / 940 590 / 590 Output Total 700 / 1050 350 / 1400 Balance -460 / -460 0 / -460 590 / 590 Weight last 48 hrs Weight 100.425 kg Weight 99.201 kg Physical Exam 2 Narrative: General: No acute distress, AO x 2 to 3 HEENT: PERRLA, pupils bilaterally equal and reactive, pallors not present Chest: Bilateral bronchial breath sounds over lung limon, occasional rhonchi, conductive airway respiratory sounds all over lung limon. CVS: S1-S2 regular, no murmurs, no tachycardia, no gallops, no rubs Abdomen: Soft, nontender, no organomegaly, bowel sounds present Neuro: encephalopathy Extremities: LE cellulitis , lymhedema, stasis dermatitis ++ Urinary Catheter Management: Milligan: Cath Placed During This Visit: yes Reason for Continuing Indwelling Catheter: Other Urinary Catheter Date of Insertion: 06/19/25 Data 06/23/25 02:58 06/23/25 02:58 Micro: Microbiology 06/22/25 10:18 Gram Stain - Final Sputum - Expectorated Sputum A&P Assessment and plan 1. Staphylococcus aureus bacteremia with sepsis: Blood culture results today changed to Staphylococcus species from Staph aureus. Follow-up repeat blood culture from 06/21. Will await complete sensitivity and specification. Appreciate ID recommendation. MRSA swab negative. Appreciate echocardiogram negative for infective endocarditis. Echodense structure in RV consistent with moderator band as per cardiology conversations. Continue with empiric IV cefazolin and vancomycin for now. Further antibiotics as per ID recommendation. Appreciate CT chest abdomen pelvis done on admission. 2. Cellulitis: Antibiotic as above. Continue to monitor. Concern for statis dermatitis. Will plan for CT foot with and without contrast for further recommendation. Check ESR, CRP. Will consult podiatry for further recommendations. 3. Decubital ulcer: 4. Acute encephalopathy: Seems to be resolving. Most likely in setting of sepsis along with acute kidney injury on admission. Continue to monitor. Aspiration precaution, fall precaution. Frequent reorientation. Out of bed to chair. Physical therapy. 5. Acute hypoxic respiratory failure: Unknown cause. Most likely in setting of aspiration. Appreciate CT chest and chest x-ray. Oxygen supplementation keeping saturation over 88%. Patient does have history of diastolic heart failure. Confirmed with echocardiogram. Echocardiogram done shows an EF of 73% with grade 1 diastolic dysfunction. Oxygen supplementation keeping saturation over 90%. Continue with Pulmicort twice daily, start on DuoNeb every 6 hour. Repeat IV Lasix 40 mg one-time. Strict input output charting, daily weights. Monitor renal functions. Out of bed to chair. Aggressive pulmonary toilet with chest vest. Incentive spirometry. Follow-up sputum culture. Advance diet as per speech evaluation. Plan for modified barium swallow today. High concern for patient having concerns for impulsive feeding and most likely would be a feeder. 6. MICHOACANO (acute kidney injury): Most likely in setting of dehydration, rhabdomyolysis and sepsis on admission. Resolving. Continue to monitor renal functions daily. 7. NSTEMI (non-ST elevated myocardial infarction): Ruled out. Most likely elevated troponins on admission due to sepsis and dehydration leading to MICHOACANO. Appreciate echocardiogram. Appreciate A1c, lipid panel. 8. Rhabdomyolysis: 9. Left breast mass: Seen on CT chest. Will plan for mammogram as an outpatient. 10. Arteriosclerosis of mesenteric artery: Seen on CT abdomen w contrast- Advanced arterial disease noted with potential for hemodynamically significant stenoses of the celiac and SMA as well as the right common iliac artery. No current findings of bowel ischemia or infarction. Start on aspirin 81 mg daily. Will plan for starting of packing next 2 weeks as patient is recovering from rhabdomyolysis. Plan: CODE STATUS: Discussed today with the patient. Full code. Discussed about healthcare proxy. Patient wants her friend to make medical decisions. Will request case management for DPOA paperwork. NPO. Advance per speech evaluation modified barium swallow. Protonix for PUD prophylaxis Lovenox for DVT prophylaxis Discharge plan: Plan to discharge to SNF for further rehabilitation and possible IV antibiotic need. Patient agreeable. Plan for the day: Continue to monitor oxygen supplementation. Wean keeping saturation over 90%. Aspiration precaution. Advance diet to dysphagia level 4 as per speech evaluation and modified barium swallow. Patient is at a higher risk of aspiration given impulsive eating and would mostly need to be fed for now. Continue nebulization treatment with DuoNebs and Pulmicort twice daily. Continue physical therapy. Blood culture from 06/19 showing Staphylococcus species. Repeat blood cultures from 06/21 so far negative. Follow-up with sputum culture. Concern for decubitus ulcer. Will consult surgery for possible need of debridement. For now continue wound care with Optifoam. PDMP PDMP Reviewed: Last Reviewed 06/21/25 10:39 by Bird Christensen MD Attestations 2 Medical Necessity Statement*: Requires further hospitalization for management of staph bacteremia, lower limb cellulitis, decubitus ulcer, generalized weakness. Discharge planning is sought. Diagnoses Staphylococcus aureus bacteremia with sepsis A41.01 Cellulitis L03.90 Site of cellulitis: extremity Site of cellulitis of extremity: lower extremity Decubital ulcer L89.90 Acute encephalopathy G93.40 Acute hypoxic respiratory failure J96.01 MICHOACANO (acute kidney injury) N17.9 NSTEMI (non-ST elevated myocardial infarction) I21.4 Rhabdomyolysis M62.82 Left breast mass N63.20 Arteriosclerosis of mesenteric artery K55.1
--- NOTE | 2025-06-23 12:22 | P.CONIM_ITS ---
Providers/Reason For Consult 2 Consulting Physician/Specialty*: Dr. Mustafa general surgery Reason for Consult*: Stage I decubitus ulcers Attending Physician: Bidr Christensen MD Primary Care Provider: Austyn Obregon History of Present Illness History of Present Illness Brielle Gaytan is a 79 year old female whom surgery was consulted to evaluate for decubitus ulcers. Patient does have stage I decubitus ulcers over the sacrum. No skin breakdown. Medications/Allergies Home Medications ?Medication ?Instructions ?Recorded ?Confirmed ?Last Taken ?Type No Known Home Medications 06/20/25 08/0 05/09 Unknown History Allergies Allergy/AdvReac Type Severity Reaction Status Date / Time No Known Allergies Allergy Unverified 01/08/21 08:54 Current Medications Generic Name Dose Route Start Last Admin Trade Name Freq PRN Reason Stop Dose Admin Albuterol/Ipratropium 3 ml 06/21/25 14:00 06/23/25 08:31 Ipratropium-Albuterol 3 Ml Neb INHALATION 3 ml Q6H.RESP YI Administration Aspirin 81 mg 06/23/25 09:00 06/23/25 09:02 Aspirin 81 Mg Ec Tablet PO 81 mg DAILY YI Administration Budesonide 0.5 mg 06/19/25 23:50 06/23/25 08:31 Budesonide 0.5 Mg/2 Ml Neb INHALATION 0.5 mg BID.RESPIRATORY YI Administration Cefazolin Sodium 2,000 mg 06/21/25 12:15 06/23/25 06:07 Cefazolin 2,000 Mg Sdv IVP 2,000 mg Q8H YI Administration Protocol Enoxaparin Sodium 40 mg 06/19/25 23:50 06/22/25 23:39 Enoxaparin 40 Mg/0.4 Ml Syringe SUBCUT 40 mg Q24H YI Administration Vancomycin HCl 1,000 mg/ 250 mls @ 250 mls/hr 06/21/25 21:30 06/23/25 10:46 Sodium Chloride IV Infused Q12H YI Infusion Morphine Sulfate 1 mg 06/19/25 23:50 06/23/25 01:21 Morphine 4 Mg/Ml Sdv 1 Ml IVP 1 mg Q4H PRN Administration SEVERE PAIN Pantoprazole Sodium 40 mg 06/19/25 23:50 06/22/25 23:38 Pantoprazole 40 Mg Sdv IVP 40 mg Q24H YI Administration PFSH Acute 2 PFSH: Medical History (Updated 06/24/25 @ 15:59 by Lindsey Yarbrough MD) Venous stasis dermatitis Staphylococcus aureus bacteremia with sepsis Diastolic dysfunction CKD (chronic kidney disease) HTN (hypertension) Social History Smoking and tobacco/nicotine status: current every day tobacco/nicotine user cigarettes Packs smoked per day: 1 Years cigarettes smoked: 63 Vitals/I&O/Wt Last Vital Signs Temp 97.9 F 06/23/25 11:32 Pulse 86 06/23/25 11:32 Resp 18 06/23/25 11:32 BP 148/53 06/23/25 11:32 Pulse Ox 95 06/23/25 11:32 O2 Del Method Oxymask 06/23/25 11:32 O2 Flow Rate 5 06/23/25 08:00 06/22/25 06/23/25 06/23/25 22:59 06:59 14:59 Intake Total 240 / 590 350 / 940 590 / 590 Output Total 700 / 1050 350 / 1400 Balance -460 / -460 0 / -460 590 / 590 Weight last 48 hrs Weight 221 lb 6.4 oz Weight 218 lb 11.2 oz Physical Exam 2 Narrative: Chest: Unlabored breathing room air. No lymphadenopathy. Heart: Regular rate and rhythm. Abdomen: Soft, nontender, nondistended. No masses or lymphadenopathy. Decubitus ulcer stage I over sacrum approximately 5 x 5 cm Urinary Catheter Management: Milligan: Cath Placed During This Visit: yes Reason for Continuing Indwelling Catheter: Other Urinary Catheter Date of Insertion: 06/19/25 Data 06/24/25 03:26 06/24/25 03:26 Micro: Microbiology 06/22/25 10:18 Gram Stain - Final Sputum - Expectorated Sputum A&P Assessment and plan 1. Decubital ulcer: Plan: 79-year-old female who presents with stage I decubitus ulcers. Recommend pressure offloading with turning q. 30 minutes. Debridement not indicated at this time. Discussed with hospitalist. PDMP PDMP Reviewed: Not Reviewed Coding Level of Care Code 67295 Diagnoses Decubital ulcer L89.90
[2025-06-23] MEDS: pantoprazole 40 mg SDV IVP (23:08)
[2025-06-24] VITALS (13 sets, daily range): BP systolic 132–179; BP diastolic 60–71; PULSE 68–94; RESP 17–22; TEMP 36.5–37.1; O2SAT 89–94
[2025-06-24 04:19] LABS: Hematocrit 35.5 % (36-47); Hemoglobin 11.50 g/dL (11.27-16.99); Mean Corpuscular HGB Conc 32.4 g/dL (30-55); Mean Corpuscular Hemoglobin 27.9 pg (27-33); Mean Corpuscular Volume 86.2 fl (85-98); Nucleated Red Blood Cells % 0 %; Platelet Count 247 10^3/cmm (157-399); Red Blood Count 4.12 10^6/uL (3.85-5.65); White Blood Count 11.47 10^3/uL (3.29-11.43)
[2025-06-24 04:42] LABS: Alanine Aminotransferase 12 U/L (0-33); Albumin Level 3.6 g/dL (3.5-5.2); Alkaline Phosphatase 61 U/L (35-105); Anion Gap 13.3 (5-19); Aspartate Amino Transferase 23 U/L (0-32); Blood Urea Nitrogen 13 mg/dL (8-23); Calcium 8.3 mg/dL (8.5-10.5); Carbon Dioxide 27 mmol/L (22-29); Chloride 106 mmol/L (98-107); Creatinine Clr Calc Pharmacy 70.7359; Globulin 2.5 g/dL (1.3-4.6); Glucose 94 mg/dL (65-115); Osmolality Calculated 296 mOsm/kg (285-295); Potassium 3.3 mmol/L (3.5-5.1); Sodium 143 mmol/L (136-145); Total Protein 6.1 g/dL (6.6-8.7)
[2025-06-24 04:54] LABS: Magnesium 2.3 mg/dL (1.7-2.3)
[2025-06-24] MEDS: ceFAZolin 2,000 mg SDV 2000 MG IVP (06:07)
--- NOTE | 2025-06-24 08:24 | PC.NURSE ---
spoke to , pt is not going to have i&d today. will restart prev. diet dys. l4 pureed, ext. thick liquids
--- NOTE | 2025-06-24 12:51 | P.PN_ITS ---
Subjective 2 Subjective: No acute events overnight. Today morning patient seen sitting up in recliner on 3 L of oxygen supplementation saturating 94%. Denies any nausea, vomiting, headache. Able to tolerate oral diet when fed. Medications: Reviewed: Yes Vitals/I&O/Wt Last Vital Signs Temp 97.8 F 06/24/25 11:53 Pulse 78 06/24/25 11:53 Resp 19 H 06/24/25 11:53 BP 179/68 06/24/25 11:53 Pulse Ox 94 06/24/25 11:53 O2 Del Method Nasal Cannula 06/24/25 11:53 O2 Flow Rate 3 06/24/25 08:00 06/23/25 06/24/25 06/24/25 22:59 06:59 14:59 Intake Total 490 / 1320 250 / 250 Output Total 500 / 500 250 / 750 Balance -10 / 820 -250 / 570 250 / 250 Weight last 48 hrs Weight 98.293 kg Weight 100.425 kg Physical Exam 2 Narrative: General: No acute distress, AO x 2 to 3 HEENT: PERRLA, pupils bilaterally equal and reactive, pallors not present Chest: Bilateral bronchial breath sounds over lung limon, occasional rhonchi, conductive airway respiratory sounds all over lung limon. CVS: S1-S2 regular, no murmurs, no tachycardia, no gallops, no rubs Abdomen: Soft, nontender, no organomegaly, bowel sounds present Neuro: encephalopathy Extremities: LE cellulitis , lymhedema, stasis dermatitis ++ Urinary Catheter Management: Milligan: Cath Placed During This Visit: yes Reason for Continuing Indwelling Catheter: Other Urinary Catheter Date of Insertion: 06/19/25 Data 06/24/25 03:26 06/24/25 03:26 Micro: Microbiology 06/19/25 19:30 Blood Culture - Preliminary Blood Staphylococcus epidermidis 06/22/25 10:18 Gram Stain - Final Sputum - Expectorated Sputum Sputum Culture - Preliminary A&P Assessment and plan 1. Staphylococcus aureus bacteremia with sepsis: Blood culture results today changed to Staphylococcus species from Staph aureus. Follow-up repeat blood culture from 06/21. Will await complete sensitivity and specification. Appreciate ID recommendation. MRSA swab negative. Appreciate echocardiogram negative for infective endocarditis. Echodense structure in RV consistent with moderator band as per cardiology conversations. Continue with empiric IV cefazolin and vancomycin for now. Further antibiotics as per ID recommendation. Appreciate CT chest abdomen pelvis done on admission. 2. Cellulitis: Antibiotic as above. Continue to monitor. Concern for statis dermatitis. Will plan for CT foot with and without contrast for further recommendation. Check ESR, CRP. Will consult podiatry for further recommendations. 3. Decubital ulcer: 4. Acute encephalopathy: Seems to be resolving. Most likely in setting of sepsis along with acute kidney injury on admission. Continue to monitor. Aspiration precaution, fall precaution. Frequent reorientation. Out of bed to chair. Physical therapy. 5. Acute hypoxic respiratory failure: Unknown cause. Most likely in setting of aspiration. Appreciate CT chest and chest x-ray. Oxygen supplementation keeping saturation over 88%. Patient does have history of diastolic heart failure. Confirmed with echocardiogram. Echocardiogram done shows an EF of 73% with grade 1 diastolic dysfunction. Oxygen supplementation keeping saturation over 90%. Continue with Pulmicort twice daily, start on DuoNeb every 6 hour. Repeat IV Lasix 40 mg one-time. Strict input output charting, daily weights. Monitor renal functions. Out of bed to chair. Aggressive pulmonary toilet with chest vest. Incentive spirometry. Follow-up sputum culture. Advance diet as per speech evaluation. Plan for modified barium swallow today. High concern for patient having concerns for impulsive feeding and most likely would be a feeder. 6. MICHOACNAO (acute kidney injury): Most likely in setting of dehydration, rhabdomyolysis and sepsis on admission. Resolving. Continue to monitor renal functions daily. 7. NSTEMI (non-ST elevated myocardial infarction): Ruled out. Most likely elevated troponins on admission due to sepsis and dehydration leading to MICHOACANO. Appreciate echocardiogram. Appreciate A1c, lipid panel. 8. Rhabdomyolysis: 9. Left breast mass: Seen on CT chest. Will plan for mammogram as an outpatient. 10. Arteriosclerosis of mesenteric artery: Seen on CT abdomen w contrast- Advanced arterial disease noted with potential for hemodynamically significant stenoses of the celiac and SMA as well as the right common iliac artery. No current findings of bowel ischemia or infarction. Start on aspirin 81 mg daily. Will plan for starting of packing next 2 weeks as patient is recovering from rhabdomyolysis. Plan: CODE STATUS: Discussed today with the patient. Full code. Discussed about healthcare proxy. Patient wants her friend to make medical decisions. Will request case management for DPOA paperwork. NPO. Advance per speech evaluation modified barium swallow. Protonix for PUD prophylaxis Lovenox for DVT prophylaxis Discharge plan: Plan to discharge to SNF for further rehabilitation and possible IV antibiotic need. Patient agreeable. Plan for the day: Blood culture positive for Staph epidermidis. Repeat blood cultures so far negative. For now continue with IV vancomycin and cefazolin. Appreciate ID recommendation. Most likely plan for IV vancomycin for next 2 weeks. Will plan for PICC line placement. Appreciate podiatry and surgical recommendations. No plan for debridement. Goal blood pressure less than 140/90 mmHg. Blood pressure is elevated. Add amlodipine 5 mg oral daily. Oxygen supplementation remained stable. Maintain oxygenation with saturation over 88%. Wean accordingly. Continue with wound care. PDMP PDMP Reviewed: Last Reviewed 06/21/25 10:39 by Bird Christensen MD Attestations 2 Medical Necessity Statement*: Requires further hospitalization for management of staph epidermidis bacteremia, lower limb cellulitis, decubitus ulcer, generalized weakness while safe discharge planning is sought. Diagnoses Staphylococcus aureus bacteremia with sepsis A41.01 Cellulitis L03.90 Site of cellulitis: extremity Site of cellulitis of extremity: lower extremity Decubital ulcer L89.90 Acute encephalopathy G93.40 Acute hypoxic respiratory failure J96.01 MICHOACANO (acute kidney injury) N17.9 NSTEMI (non-ST elevated myocardial infarction) I21.4 Rhabdomyolysis M62.82 Left breast mass N63.20 Arteriosclerosis of mesenteric artery K55.1
--- NOTE | 2025-06-24 13:10 | P.PN_ITS ---
Subjective 2 Subjective: Patient seen this morning. Resting comfortably in chair. No overnight events. Vitals/I&O/Wt Last Vital Signs Temp 97.8 F 06/24/25 11:53 Pulse 78 06/24/25 11:53 Resp 19 H 06/24/25 11:53 BP 179/68 06/24/25 11:53 Pulse Ox 94 06/24/25 11:53 O2 Del Method Nasal Cannula 06/24/25 11:53 O2 Flow Rate 3 06/24/25 08:00 06/23/25 06/24/25 06/24/25 22:59 06:59 14:59 Intake Total 490 / 1320 250 / 250 Output Total 500 / 500 250 / 750 Balance -10 820 -250 / 570 250 / 250 Weight last 48 hrs Weight 216 lb 11.2 oz Weight 221 lb 6.4 oz Physical Exam 2 Narrative: BELOW IS A FOCUSED LOWER EXTREMITY EXAM GENERAL: A&O x 3 VASCULAR: DP/PT pulses diminished secondary to pitting edema. +2 pitting edema DERMATOLOGICAL: Significant improvement of left lower extremity swelling and erythema. Unna boot compression wrap removed at today's visit. MUSCULOSKELETAL: Pain with palpation of the left leg and foot NEUROLOGICAL: Neurological sensation to the affected foot and ankle is present through L4-S1 dermatomes with no hyper/hypoesthesias, negative Tinel or Valleix's sign IMAGING: Venous duplex ultrasound left lower extremity negative for DVT. CT scan left lower extremity shows no drainable abscess or fluid collection. Urinary Catheter Management: Milligan: Cath Placed During This Visit: yes Reason for Continuing Indwelling Catheter: Other Urinary Catheter Date of Insertion: 06/19/25 Data 06/24/25 03:26 06/24/25 03:26 Micro: Microbiology 06/19/25 19:30 Blood Culture - Preliminary Blood Staphylococcus epidermidis 06/22/25 10:18 Gram Stain - Final Sputum - Expectorated Sputum Sputum Culture - Preliminary A&P Assessment and plan 1. Sepsis: * Suspected source left leg * WBC 36.26 on admission--questionable if left leg is single source for leukocytosis * CRP to 231.2 * HR 98 * RR 28 * Temp 98 * Resolving 2. Cellulitis: * Left lower extremity cellulitis likely secondary to stasis dermatitis * Continue IV antibiotic therapy * Monitor * See below * Resolving 3. Venous stasis dermatitis of both lower extremities: * Left lower extremity stasis dermatitis causing cellulitis. Likely source of sepsis * No appreciable fluid collection or underlying abscess on physical exam or CT scan * Multilayer compression wrap applied to left lower extremity * Significant improvement to lower extremity to edema and erythema upon removal of multilayer compression wrap * No further intervention by podiatry during this admission 4. Dystrophia unguium: * Nails mechanically debrided x 10 without incident using sterile nail nippers Plan: Podiatry discharge plan: Okay to discharge from podiatry standpoint. Follow-up with podiatry within 2 weeks of discharge Podiatry will sign off. Please reconsult if needed PDMP PDMP Reviewed: Not Reviewed Attestations 2 Medical Necessity Statement*: See hospitalist note Coding Level of Care Code Acute Code for [facility] Diagnoses Sepsis A41.9 Cellulitis L03.90 Venous stasis dermatitis of both lower extremities I87.2 Dystrophia unguium L60.3
--- NOTE | 2025-06-24 15:57 | P.PN_ITS ---
Subjective 2 Subjective: Infectious disease progress note. Blood cultures have now been updated to reflect Staph epidermidis from 06/19/2025. Medications: Reviewed: Yes Vitals/I&O/Wt Last Vital Signs Temp 97.8 F 06/24/25 11:53 Pulse 94 06/24/25 15:01 Resp 22 H 06/24/25 15:01 BP 179/68 06/24/25 11:53 Pulse Ox 92 06/24/25 15:01 O2 Del Method Nasal Cannula 06/24/25 15:01 O2 Flow Rate 3 06/24/25 15:01 06/24/25 06/24/25 06/24/25 06:59 14:59 22:59 Intake Total 370 / 370 Output Total 250 / 750 Balance -250 / 570 370 / 370 Weight last 48 hrs Weight 98.293 kg Weight 100.425 kg Physical Exam 2 Narrative: General: No acute distress, AO x3 HEENT: PERRLA, pupils bilaterally equal and reactive, pallors not present Chest: Normal vesicular breath sounds, no added sounds, equal good air entry bilaterally CVS: S1-S2 regular, no murmurs, no tachycardia, no gallops, no rubs Abdomen: Soft, nontender, no organomegaly, bowel sounds present Neuro: No focal deficits, no facial deformity, AO x3, power 5/5 in all limbs Urinary Catheter Management: Milligan: Cath Placed During This Visit: yes Reason for Continuing Indwelling Catheter: Other Urinary Catheter Date of Insertion: 06/19/25 Data 06/24/25 03:26 06/24/25 03:26 Micro: Microbiology 06/19/25 19:30 Blood Culture - Final Blood Staphylococcus epidermidis 06/22/25 10:18 Gram Stain - Final Sputum - Expectorated Sputum Sputum Culture - Final A&P Assessment and plan 1. Cellulitis: 2. Acute encephalopathy: 3. Acute hypoxic respiratory failure: 4. Bacteremia, coagulase-negative staphylococcal: Plan: Patient is an 79-year-old female who denies any known past medical comorbidities presenting to the hospital with chief complaints of acute encephalopathy, left lower extremity cellulitis in the setting of having some chronic stasis dermatitis changes and found to have a Staph aureus bacteremia. Blood cultures as noted positive from admission. Repeat blood cultures taken this morning are currently pending to a certain clearance. Patient had a PICC line placed upon admission which would need to be removed now that staff aureus bacteremia has been detected. Recommend to only continue with peripheral IVs at this point until bacteremia clearance can be demonstrated for at least 48 to 72 hours. WBC count is trending down from 31,000-19,000 today. Patient's encephalopathy is improving. She is alert awake and oriented able to have a conversation. Source of the bacteremia appears to be left lower extremity cellulitis. TTE taken today showing LVEF of 73%, mild LVH, grade 1 diastolic dysfunction. Normal to mildly elevated filling pressure. There was noted to be an echodense structure along the RV apex suggesting a moderator band. No evidence of any vegetation on the transthoracic echocardiogram. CT of the chest abdomen and pelvis was taken upon admission which did not show any consolidation. No obvious abdominal source of infection. Bones and tissues visualized without any acute fracture or destructive lesions.patient denies any back pain. Given recovery of Staph aureus bacteremia with unknown duration of symptoms, will prefer to treat with any prolonged course of antibiotics to let you know 4 to 6 weeks. Will follow final culture results to establish whether MSSA versus MRSA, will follow cultures to determine clearance. Will continue to follow along. June 22, 2025 Blood cultures have been updated today to now reflect Staphylococcus species only. Based on direct PCR this does not appear to be Staph aureus or staph lugdunensis or Staph epidermidis. Will await final identification and sensitivity results from micro scan. Follow-up blood culture thus far negative. White blood cell count down to 14,000 today. Tmax 99 Fahrenheit. Continues to have significant swelling over the plantar aspect of the left foot. Will obtain CT of the affected extremity to evaluate for any drainable abscess. Will continue to follow June 24, 2025 Blood cultures have now been updated to reflect Staph epidermidis only, 1 out of 4 bottles. WBC count is much improved. Remains at 11,000 from 36,000 previously. While this may represent contamination, with sepsis on presentation, white blood cell count of 36,000, lower extremity cellulitis as a source, cannot rule out true bacteremia at this time. Follow-up blood culture remains negative at this time. Recommend to discharge patient on IV vancomycin 1 g IV every 12 hours for the total 2 weeks 2 weeks. Recommend to obtain weekly vancomycin trough and kidney function while on the above antibiotic course. This will additionally suffice for the management of cellulitis. CT of the leg did not show any drainable abscess. Weekly labs to be faxed to infectious disease clinic for review. Please call with any further questions or concerns. PDMP PDMP Reviewed: Not Reviewed Attestations 2 Medical Necessity Statement*: Per admitting Coding Level of Care Code Acute Code for Chg Fwd Moderate MDM includes number and complexity of problems actively addressed during encounter, amount and/or complexity of data reviewed/ordered and described risk of complication, morbidity or mortality of management as documented Diagnoses Cellulitis L03.90 Site of cellulitis: extremity Site of cellulitis of extremity: lower extremity Acute encephalopathy G93.40 Acute hypoxic respiratory failure J96.01 Bacteremia, coagulase-negative staphylococcal R78.81; B95.7
--- NOTE | 2025-06-24 17:21 | P.PN_ITS ---
Subjective 2 Subjective: No acute events overnight Vitals/I&O/Wt Last Vital Signs Temp 97.8 F 06/24/25 16:06 Pulse 93 06/24/25 16:06 Resp 18 06/24/25 16:06 BP 159/67 06/24/25 16:06 Pulse Ox 92 06/24/25 16:06 O2 Del Method Nasal Cannula 06/24/25 16:06 O2 Flow Rate 3 06/24/25 15:01 06/24/25 06/24/25 06/24/25 06:59 14:59 22:59 Intake Total 370 / 370 Output Total 250 / 750 Balance -250 / 570 370 / 370 Weight last 48 hrs Weight 216 lb 11.2 oz Weight 221 lb 6.4 oz Physical Exam 2 Narrative: Chest: Unlabored breathing room air. No lymphadenopathy. Heart: Regular rate and rhythm. Abdomen: Soft, nontender, nondistended. No masses or lymphadenopathy. Stage I decubitus ulcers about 5 x 5 cm over sacrum Urinary Catheter Management: Milligan: Cath Placed During This Visit: yes Reason for Continuing Indwelling Catheter: Other Urinary Catheter Date of Insertion: 06/19/25 Data 06/24/25 03:26 06/24/25 03:26 Micro: Microbiology 06/19/25 19:30 Blood Culture - Final Blood Staphylococcus epidermidis 06/22/25 10:18 Gram Stain - Final Sputum - Expectorated Sputum Sputum Culture - Final A&P Assessment and plan 1. Decubital ulcer: Plan: 79-year-old female with stage I decubitus ulcer. Recommend pressure offloading with turning q. 30 minutes. Rest of care per hospitalist. PDMP PDMP Reviewed: Not Reviewed Attestations 2 Medical Necessity Statement*: N/A Coding Level of Care Code 62122 Diagnoses Decubital ulcer L89.90
[2025-06-24] MEDS: morphine 4 mg/mL SDV 1 mL 1 MG IVP ×2 (20:23→23:24)
[2025-06-24] MEDS: pantoprazole 40 mg SDV IVP (23:25)
[2025-06-25] VITALS (12 sets, daily range): BP systolic 132–162; BP diastolic 68–94; PULSE 68–92; RESP 16–24; TEMP 36.4–36.8; O2SAT 90–98
[2025-06-25] MEDS: morphine 4 mg/mL SDV 1 mL 1 MG IVP ×3 (03:01→13:53)
--- NOTE | 2025-06-25 04:38 | PC.NURSE ---
PAIN/IV PT PULLED MULTIPLE IV'S OUT THROUGHOUT SHIFT, WHEN ASKED IF SHE KNEW SHE WAS PULLING THEM OUT SHE REPLIED, NO I DON'T KNOW WHY I KEEP DOING THAT . CHARGE NURSE CALLED FOR A SITTER TO OBSERVE PT TO HELP KEEP PT FROM PULLING IVS OUT. PT ALSO COMPLAINED OF PAIN THROUGHOUT SHIFT DESPITE GETTING AN EXTRA 1 TIME DOSE OF 1MG MORPHINE IVP, DR. MATUTE NOTIFIED. NO NEW ORDERS AT THIS TIME.
[2025-06-25 06:04] LABS: Hematocrit 37.5 % (36-47); Hemoglobin 11.80 g/dL (11.27-16.99); Mean Corpuscular HGB Conc 31.5 g/dL (30-55); Mean Corpuscular Hemoglobin 27.8 pg (27-33); Mean Corpuscular Volume 88.2 fl (85-98); Nucleated Red Blood Cells % 0 %; Platelet Count 257 10^3/cmm (157-399); Red Blood Count 4.25 10^6/uL (3.85-5.65); White Blood Count 11.02 10^3/uL (3.29-11.43)
[2025-06-25 06:24] LABS: Alanine Aminotransferase 9 U/L (0-33); Albumin Level 3.4 g/dL (3.5-5.2); Alkaline Phosphatase 62 U/L (35-105); Anion Gap 12.1 (5-19); Aspartate Amino Transferase 19 U/L (0-32); Blood Urea Nitrogen 12 mg/dL (8-23); Calcium 8.2 mg/dL (8.5-10.5); Carbon Dioxide 26 mmol/L (22-29); Chloride 107 mmol/L (98-107); Creatinine Clr Calc Pharmacy 69.9791; Globulin 3.2 g/dL (1.3-4.6); Glucose 101 mg/dL (65-115); Osmolality Calculated 294 mOsm/kg (285-295); Potassium 3.1 mmol/L (3.5-5.1); Sodium 142 mmol/L (136-145); Total Protein 6.6 g/dL (6.6-8.7)
[2025-06-25] MEDS: ondansetron 2 mg/ML SDV 2 mL 4 MG IVP (08:37)
--- NOTE | 2025-06-25 12:37 | PM.DCS ---
Discharge Providers Date of Admission: 06/19/25 21:37 Date of Discharge: June 25, 2025 Attending Provider at Admission: Armaan Gonsales MD Attending Provider at Discharge: Armaan Gonsales MD Primary Care Provider: Austyn Obregon Diagnoses at Discharge Discharge Diagnosis 1. Decubital ulcer: Reason for Visit Reason for Visit: SOB Hospital Course Hospital Course Brielle Gaytan is a 79 year old female history of hypertension, venous stasis dermatitis, who presents [facility] due to altered mental status. Currently patient is alert to person, not in place, not in time, she moves bilateral upper and lower extremities, but is diffusely encephalopathic, she can answer at times basic yes or no questions, but other times she remains encephalopathic, GCS score is 10, she is on 5 L, heart rates in the 120s sinus tachycardia, blood pressure 129/73, no family members at bedside for history taking, patient has received a 500 mL normal saline, received vancomycin, [place] hospitalist team was called for admission Patient was admitted to [facility] for staphylococcal aureus bacteremia with sepsis - Echocardiogram negative for infective endocarditis, echodense structure in the right ventricle consistent with obturator brand as per cardiology - Managed with broad-spectrum antibiotic therapy - Will be discharged on IV vancomycin for a total of 2 weeks For cellulitis - Received broad-spectrum IV therapy - Podiatry consulted - Follow-up with podiatry as outpatient, medically manage For decubitus ulcer, general surgery consulted, recommended medical management, continue offloading For acute encephalopathy, resolved with IV antibiotics Acute respiratory failure, concerns for aspiration, concerns for pneumonia, managed with intermittent IV diuresis, EF 73% MICHOACANO, setting of dehydration, rhabdomyolysis, resolved Left breast mass, will need to follow-up with primary care as outpatient Physical Exam Const: COMMON NORMALS: no acute distress ORIENTATION/CONSCIOUSNESS: Yes awake, Yes oriented to person and Yes oriented to place Resp: COMMON NORMALS: normal respiratory effort, No retractions, No use of accessory muscles and clear to auscultation bilaterally AUSCULTATION: clear to auscultation bilaterally Cardio: COMMON NORMALS: regular rate, regular rhythm, S1 normal heart sound present and S2 normal heart sound present RATE: regular rate RHYTHM: regular rhythm HEART SOUNDS: S1 normal heart sound present and S2 normal heart sound present GI: COMMON NORMALS: Normal to inspection, nondistended, normoactive bowel sounds present and non-tender Extremity: COMMON NORMALS: no pedal edema Neuro: SENSORIUM/ORIENTATION: Yes oriented to person and Yes oriented to place Urinary Catheter Management: Milligan: Cath Placed During This Visit: yes, but has since been removed by the nurse Reason for Continuing Indwelling Catheter: Decision to DC Catheter Urinary Catheter Date of Insertion: 06/19/25 Date Urinary Catheter Removed: 06/24/25 Time Urinary Catheter Discontinued: 11:10 Discharge Data Studies Completed and Pending Completed Studies During Hospitalization Category Date Time Status CT chest abdpel w/*[id number] Stat Cat Scan 06/19/25 19:[address] foot LT w con [id number] Routine Cat Scan 06/22/25 11:[address] head wo con* [id number] Stat Cat Scan 06/19/25 19:11 Completed CXRP [XR chest 1V portable [id number]] Routine Exams 06/20/25 11:55 Completed CXRP [XR chest 1V portable [id number]] Stat Exams 06/21/25 16:31 Completed Modified barium swallow [FL barium swallow modifd [id number] Exams 06/22/25 09:58 Completed ] Urgent XR chest 1V portable [id number] Stat Exams 06/19/25 19:09 Completed XR tibia fibula LT 2V [id number] Stat Exams 06/19/25 19:11 [place] [id number] Stat Ultrasound 06/19/25 22:22 Completed CV. echo complete* [id number] Stat Ultrasound 06/20/25 22:24 Completed Pending at discharge Category Date Time Status Blood Culture AM LABS Lab 06/21/25 05:07 Results Radiology Impressions Chest/Abdomen/Pelvis CT 06/19/25 19:11 IMPRESSION: 1. No acute abnormality in the chest to explain patient's sepsis. 2. Advanced arterial disease. 3. Despite appearance on plain film, the heart size is normal. There is chronic appearing volume loss in the left lower lobe resulting in displacement of the heart to the left. 4. There is asymmetric tissue in the lateral aspect of the left breast. This may be a physiologic asymmetry, but correlation with mammography is recommended. IMPRESSION: 1. There is inflammatory change in the left inguinal region and proximal thigh with enlarged enhancing lymph nodes suggesting cellulitis or other inflammatory/infectious process in the left lower extremity. 2. No acute intra-abdominal abnormality. No evidence of bowel obstruction or urolithiasis. 3. Advanced arterial disease noted with potential for hemodynamically significant stenoses of the celiac and SMA as well as the right common iliac artery. No current findings of bowel ischemia or infarction. 4. Advanced diverticulosis without evidence of acute diverticulitis. 5. Cholelithiasis without evidence of acute cholecystitis. Head CT 06/19/25 19:11 IMPRESSION: No acute intracranial abnormality. Senescent changes. Tibia/Fibula X-Ray 06/19/25 19:11 IMPRESSION: Severe subcutaneous edema and cutaneous thickening. No soft tissue gas or radiopaque foreign body. Bony structures appear normal. Chest X-Ray 06/21/25 16:31 IMPRESSION: Nonspecific diffuse bilateral pulmonary opacity is stable since 06/20/2025. Possible interstitial edema or atypical infection. Modified Barium Swallow 06/22/25 09:58 IMPRESSION: A detailed report of the swallowing will be rendered by the speech therapy department. Laryngeal vestibule penetration. Distal esophageal motility. Foot CT 06/22/25 11:44 IMPRESSION: Skin thickening and subcutaneous stranding throughout the soft tissues of the ankle and including the dorsum of the foot, nonspecific although concerning for cellulitis. No localized fluid collection to suggest abscess amenable to percutaneous drainage. Laboratory Results WBC 11.02 10^3/uL (3.29-11.43) 06/25/25 05:41 RBC 4.25 10^6/uL (3.85-5.65) 06/25/25 05:41 Hgb 11.80 g/dL (11.27-16.99) 06/25/25 05:41 Hct 37.5 % (36-47) 06/25/25 05:41 MCV 88.2 fl (85-98) 06/25/25 05:41 MCH 27.8 pg (27-33) 06/25/25 05:41 MCHC 31.5 g/dL (30-55) 06/25/25 05:41 RDW 15.0 % (12.1-15.1) 06/25/25 05:41 Plt Count 257 10^3/cmm (157-399) 06/25/25 05:41 MPV 10.4 fL (7.4-10.4) 06/25/25 05:41 Neut % (Auto) 70.0 % 06/25/25 05:41 Lymph % (Auto) 15.2 % 06/25/25 05:41 [place] % (Auto) 7.4 % 06/25/25 05:41 Eos % (Auto) 3.4 % 06/25/25 05:41 Baso % (Auto) 0.7 % 06/25/25 05:41 Neut # (Auto) 7.72 10^3/uL (1.8-7.7) H 06/25/25 05:41 Lymph # (Auto) 1.7 10^3/uL (0.8-4.8) 06/25/25 05:41 [place] # (Auto) 0.8 10^3/uL (0.2-0.9) 06/25/25 05:41 Eos # (Auto) 0.4 10^3/uL (0.0-0.8) 06/25/25 05:41 Baso # (Auto) 0.1 10^3/uL (0.0-0.1) 06/25/25 05:41 Nucleated RBC % (auto) 0 % 06/25/25 05:41 Nucleated RBCs # 0.0 /100WBC 06/25/25 05:41 ESR 67 mm/hr (0-15) H 06/22/25 04:50 PT 14.70 SECONDS (12.1-14.9) 06/19/25 19:27 INR 1.08 (0.8-1.2) 06/19/25 19:27 APTT 33.5 SECONDS (23.9-36.7) 06/19/25 19:27 D-Dimer 2.94 ug/mLFEU (0-0.59) H 06/19/25 19:27 Specimen Type Arterial 06/19/25 20:06 Sample Site Radial, right 06/19/25 20:06 ABG pH 7.46 (7.35-7.45) H 06/19/25 20:06 ABG pCO2 28.4 mmHg (35-45) L 06/19/25 20:06 ABG pO2 57.9 mmHg (80.0-100.0) L 06/19/25 20:06 ABG HCO3 20.3 mmol/L (22-26) L 06/19/25 20:06 ABG O2 Saturation 91.8 06/19/25 20:06 ABG Base Excess -2.2 mmol/L (-2.0-2.0) L 06/19/25 20:06 Royla Test Pos 06/19/25 20:06 A-a O2 Gradient 7.3 mmHg (5-10) 06/19/25 20:06 Hematocrit 45.2 % (37-47) 06/19/25 20:06 Hgb O2 Saturation 88.7 % (95-100) L 06/19/25 20:06 Carboxyhemoglobin 2.5 %THgb (0.4-20.1) 06/19/25 20:06 Methemoglobin 0.9 % (0.4-1.5) 06/19/25 20:06 Total Hemoglobin 14.8 g/dL (12-16) 06/19/25 20:06 Sodium 134.0 mmol/L (131-143) 06/19/25 20:06 Potassium 4.5 mmol/L (3.5-5.0) 06/19/25 20:06 Glucose 188.0 mg/dL (70-115) H 06/19/25 20:06 Ionized Calcium 1.1 mmol/L (1.1-1.4) 06/19/25 20:06 O2 Delivery Device Nc 06/19/25 20:06 O2 Liters/Min 3.0 % 06/19/25 20:06 Hot Dip Plater ID [email or web address] 06/19/25 20:06 Sodium 142 mmol/L (136-145) 06/25/25 05:41 Potassium 3.1 mmol/L (3.5-5.1) L 06/25/25 05:41 Chloride 107 mmol/L (98-107) 06/25/25 05:41 Carbon Dioxide 26 mmol/L (22-29) 06/25/25 05:41 Anion Gap 12.1 (5-19) 06/25/25 05:41 BUN 12 mg/dL (8-23) 06/25/25 05:41 Creatinine 0.5 mg/dL (0.5-0.9) 06/25/25 05:41 GFR Calculation Not Reportable 06/25/25 05:41 Glucose 101 mg/dL (65-115) 06/25/25 05:41 Estimat Average Glucose 117 06/20/25 01:55 Hemoglobin A1c 5.7 % (4.0-6.0) 06/20/25 01:55 Calculated Osmolality 294 mOsm/kg (285-295) 06/25/25 05:41 Lactic Acid 6.0 mmol/L (0.5-2.2) H* 06/19/25 19:27 Lactic Acid (Sepsis) 4.8 mmol/L (0.5-2.2) H* 06/19/25 21:20 Calcium 8.2 mg/dL (8.5-10.5) L 06/25/25 05:41 Phosphorus 2.8 mg/dL (2.5-4.5) 06/20/25 01:55 Magnesium 2.3 mg/dL (1.7-2.3) 06/24/25 03:26 Iron 13 ug/dL (37-145) L 06/21/25 05:07 TIBC 99 mcg/dl 06/21/25 05:07 % Saturation 13.1 % (20-50) L 06/21/25 05:07 Unsat Iron Binding 86 ug/dL (112-347) L 06/21/25 05:07 Total Bilirubin 0.8 mg/dL (0.15-1.2) 06/25/25 05:41 AST 19 U/L (0-32) 06/25/25 05:41 ALT 9 U/L (0-33) 06/25/25 05:41 Alkaline Phosphatase 62 U/L (35-105) 06/25/25 05:41 Ammonia 39 umol/L (11-51) 06/19/25 19:27 Creatine Kinase 810 U/L (26-192) H* 06/19/25 19:27 Troponin T Baseline 19 ng/L (0-10) H 06/19/25 19:27 Troponin T 120 Minute 19.92 ng/L (0-10) H 06/19/25 21:20 Delta Troponin T 0.92 ABS# (0-10) 06/19/25 21:20 Troponin T Hi Sens 6Hr 27.29 ng/L (0-10) H 06/20/25 01:55 Troponin T Hi Sens 6Hr Delta 8.29 ng/L (0-12) 06/20/25 01:55 C-Reactive Protein 254.3 mg/L (0.0-4.9) H 06/22/25 04:50 Total Protein 6.6 g/dL (6.6-8.7) 06/25/25 05:41 Albumin 3.4 g/dL (3.5-5.2) L 06/25/25 05:41 Globulin 3.2 g/dL (1.3-4.6) 06/25/25 05:41 Triglycerides 78 mg/dL (0-150) 06/20/25 01:55 Cholesterol 93 mg/dL (0-200) 06/20/25 01:55 LDL Cholesterol, Calc 49 mg/dL (50-129) L 06/20/25 01:55 HDL Cholesterol 28 mg/dL (60-100) L 06/20/25 01:55 LDL/HDL Ratio 1.75 RATIO (0.00-3.22) 06/20/25 01:55 Cholesterol/HDL Ratio 3.32 mg/dL (0.0-4.40) 06/20/25 01:55 Vitamin B12 384 pg/mL (232-1245) 06/21/25 05:07 Folate 5.6 ng/mL (4.8-37.3) 06/22/25 04:50 Procalcitonin 4.49 ng/mL (0-0.5) H 06/21/25 05:07 TSH 2.36 uIU/mL (0.27-4.20) 06/20/25 01:55 Random Cortisol 26.28 ug/dL (2.47-19.5) H 06/20/25 01:55 Urine Color Yellow (Yellow) 06/19/25 23:54 Urine Appearance Cloudy (CLEAR) A 06/19/25 23:54 Urine pH 5.0 (5-7) 06/19/25 23:54 Ur Specific [place] 1.057 (1.005-1.030) H 06/19/25 23:54 Urine Protein Trace (Negative) A 06/19/25 23:54 Urine Glucose (UA) Negative (Normal) 06/19/25 23:54 Urine Ketones Negative (Negative) 06/19/25 23:54 Urine Blood 1+ (Negative) A 06/19/25 23:54 Urine Nitrate Negative (Negative) 06/19/25 23:54 Urine Bilirubin Negative (Negative) 06/19/25 23:54 Urine Urobilinogen 1.0 mg/dL (Negative) 06/19/25 23:54 Ur Leukocyte Esterase Negative (Negative) 06/19/25 23:54 Urine RBC 3-5 /hpf (0-2) 06/19/25 23:54 Urine WBC 0-5 /hpf (0-5) 06/19/25 23:54 Ur Squamous Epith Cells 0-5 /hpf (0-5) 06/19/25 23:54 Amorphous Sediment Not Reportable 06/19/25 23:54 Urine Bacteria None seen /hpf (NONE) 06/19/25 23:54 Hyaline Casts 0.40 /lpf 06/19/25 23:54 Nasal MRSA (PCR) Not detected (Not Detecte) 06/21/25 10:57 Vancomycin Trough 15.0 ug/mL (10-15) 06/23/25 08:46 Urine Opiates Screen Negative ng/mL (Negative) 06/21/25 10:59 Ur Barbiturates Screen Negative ng/mL (Negative) 06/21/25 10:59 Ur Phencyclidine Scrn Negative ng/mL (Negative) 06/21/25 10:59 Ur Amphetamines Screen Negative ng/mL (Negative) 06/21/25 10:59 U Benzodiazepines Scrn Negative ng/mL (Negative) 06/21/25 10:59 Urine Cocaine Screen Negative ng/mL (Negative) 06/21/25 10:59 U Marijuana (THC) Screen Negative ng/mL (Negative) 06/21/25 10:59 Vitals Last Vital Signs Temp 98.2 F 06/25/25 11:52 Pulse 68 06/25/25 11:52 Resp 16 06/25/25 11:52 BP 150/75 06/25/25 11:52 Pulse Ox 93 06/25/25 11:52 O2 Del Method Nasal Cannula 06/25/25 11:52 O2 Flow Rate 3 06/25/25 08:01 Discharge Plan Discharge Patient Disposition: Xfer SNF Condition: Stable Prescriptions: New amlodipine 5 mg Tablet 5 mg PO DAILY 30 Days Qty: 3 0RF aspirin 81 mg Tablet,Delayed Release (Dr/Ec) 81 mg PO DAILY 30 Days Qty: 30 0RF vancomycin 1,000 mg recon soln 1,000 mg IV Q12H 14 Days Qty: 10 0RF Discharge Order = DC NOW: Discharge Order (Routine); Ordered 06/25/25 Ordered By: Armaan Gonsales Referrals: [facility] [Outside] Kole Ricks DPM [Physician, Podiatry] - 07/02/25 2:15 pm Austyn Obregon [Primary Care Provider, [facility]] - 07/04/25 8:20 am Discharge Diet: Advance as tolerated Discharge Activity: Resume usual activity Patient Instructions: Cellulitis (ED), Stasis Dermatitis (DC), Bacteremia (DC), Opioid Safety, Patient Portal & Gerhard Instructions, Decubitus Ulcers Activity Restrictions/Additional Instructions: - Follow-up with Dr. Yarbrough - Discharged on vancomycin 1 g IV every 12 hours, for total of 2 weeks, stop date July 05, 2025 - For stage I decubitus ulcer, continue repositioning, offload every 2-3 hours, wound care Discharge Attestations Time Spent in Discharge Care*: greater than 30 min Quality Metrics Clinical Quality Measures [ No reported AMI, CVA or VTE this stay] Coding Level of Care Code 90649 Total time (in minutes) for Discharge: 45 Diagnoses Decubital ulcer L89.90
--- NOTE | 2025-06-25 12:56 | XRR_ITS ---
PROCEDURE INFORMATION: Exam: XR Chest Exam date and time: 06/25/2025 1:26 PM Age: 79 years old Clinical indication: Device placement; Picc; 2 images; Additional info: Post picc insertion, ricarda placing on med-surg 264. Should be ready at 1335 TECHNIQUE: Imaging protocol: Radiologic exam of the chest. Views: 1 view. COMPARISON: CR (CHEST, ) 06/21/2025 4:47 PM FINDINGS: Tubes, catheters and devices: Right PICC catheter is present with the tip in the SVC. There is atherosclerosis of the aorta. Lungs: Diffuse increased interstitial opacities are present throughout the lungs. There is mild alveolar opacities most consistent with edema. There consolidation and/or atelectasis at the left lung base. Pleural spaces: Unremarkable. No pleural effusion. No pneumothorax. Heart/Mediastinum: Heart size is in the upper limits of normal. Bones/joints: No acute bony abnormality identified. XR/XR chest 1V portable [id number] IMPRESSION: Interval placement of PICC catheter in the SVC. Findings suggestive of CHF.
--- NOTE | 2025-06-25 14:19 | PICC.NOTE ---
Single lumen PICC placed to right basilic vein. Referred to vascular access nurse for PICC placement due to need for IV antibiotics. Risks and benefits discussed and informed consent obtained from pt son Sean, at bedside. Right arm assessed with right basilic vein measuring 3.8 mm, straight, and apparent best choice for placement. Using sterile technique and MST, right basilic vein accessed x 1 stick. Mid-arm circumference measured 10 cm from right AC 33 cm. Trimmed cath 41 cm with 0 cm external length noted. CXR shows tip to appear to be distal SVC. Awaiting radiology to read. Line secured with stat-lock. Insertion site covered with Biopatch and TSM. Report given to bedside nurse, Miri.
--- NOTE | 2025-06-25 14:31 | PC.SOCIAL ---
*IMM Update. Signed and dated , placed in chart. Copy gave to patient.
== END 2025-06-25 19:00 | disposition skilled nursing facility (03) | DRG 871 ==
LOC: ER 21:44 → ICU 22:32 → MEDSURG 06-20 14:53
PROVIDERS: Student in an Organized Health Care Education/Training Program; Admitting Provider Family Medicine; Emergency Provider Emergency Medicine; PCP Family Medicine; Visit Provider Family Medicine
DX: A41.01 Sepsis due to Methicillin susceptible Staphylococcus aureus (principal); G93.41 Metabolic encephalopathy; J96.01 Acute respiratory failure with hypoxia; J69.0 Pneumonitis due to inhalation of food and vomit; L03.116 Cellulitis of left lower limb; N17.9 Acute kidney failure, unspecified; M62.82 Rhabdomyolysis; K55.1 Chronic vascular disorders of intestine; I13.0 Hypertensive heart and chronic kidney disease with heart failure and stage 1 through stage 4 chronic kidney disease, or unspecified chronic kidney disease; I50.32 Chronic diastolic (congestive) heart failure; E87.20 Acidosis, unspecified; L89.151 Pressure ulcer of sacral region, stage 1; I87.2 Venous insufficiency (chronic) (peripheral); E86.0 Dehydration; N63.20 Unspecified lump in the left breast, unspecified quadrant; F17.210 Nicotine dependence, cigarettes, uncomplicated; L60.3 Nail dystrophy; N18.9 Chronic kidney disease, unspecified
CPT/HCPCS: 36415; 36573; 36600; 51702; 70450; 71045; 71260; 73590; 73701; 74177; 74230; 80051; 80053; 80061; 80202; 80306; 81001; 82140; 82330; 82533; 82550; 82607; 82746; 82805; 83036; 83540; 83550; 83605; 83735; 84100; 84145; 84443; 84484; 85025; 85378; 85610; 85651; 85730; 86140; 87040; 87070; 87077; 87150; 87186; 87205; 92523; 92526; 92610; 92611; 93005; 93306; 93970; 94640; 94664; 94669; 96365; 96367; 96372; 97110; 97162; 97530; 99285; J0690; J1650; J1938; J2270; J2405; J2470; J2543; J3373; J7040; J7050; J7626; J9999; P9046

== ENCOUNTER → 2025-07-12 09:12 | Outpatient (BNVA) | payer MEDICARE, SELFPAY | PROVIDERS: PCP Electrodiagnostic Medicine; Visit Provider Podiatrist Foot & Ankle Surgery | DX: Z09 Encounter for follow-up examination after completed treatment for conditions other than malignant neoplasm (principal) | CPT/HCPCS: 99213 ==